=== PATIENT | female | born 1970 | race Two or more races ===

== ENCOUNTER 2023-12-21 02:58 | Inpatient (IN) ==
[2023-12-21] MEDS ORDERED: SOLU-MEDROL 125 MG IVP ONE (03:05)
[2023-12-21] MEDS: DUONEB NEB ONE (03:12)
[2023-12-21 03:42] LABS: BASOPHILS % (AUTO) 0.3 % (0.0-3.0); EOSINOPHILS # (AUTO) 0.3 K/ul (0.0-0.7); EOSINOPHILS % (AUTO) 2.8 % (0.0-7.0); HEMATOCRIT 41.1 % (37.0-47.0); HEMOGLOBIN 13.3 g/dl (12.0-16.0); IMMATURE GRANULOCYTE % (AUTO) 0.3 % (0.0-5.0); LYMPHOCYTES # (AUTO) 1.2 K/uL (0.60-3.4); LYMPHOCYTES % (AUTO) 11.9 (10.0-50.0); MEAN CORPUSCULAR HEMOGLOBIN 29.8 pg (27.0-31.0); MEAN CORPUSCULAR HGB CONC 32.4 (31.8-35.4); MEAN CORPUSCULAR VOLUME 91.9 fl (81.0-99.0); MONOCYTES # (AUTO) 0.9 K/uL (0.4-2.0); MONOCYTES % (AUTO) 8.8 (0-10); NEUTROPHILS # (AUTO) 7.6 K/ul (2.0-6.9); NEUTROPHILS % (AUTO) 75.9 % (42.2-75.2); PLATELET COUNT 187 10^3/uL (140-440); RDW COEFFICIENT OF VARIATION 13.8 % (11.6-14.8); RED BLOOD COUNT 4.47 10^6/ul (4.20-5.40); WHITE BLOOD COUNT 10.02 K/ul (4.6-10.2)
[2023-12-21 03:54] LABS: ALANINE AMINOTRANSFERASE 47.2 U/L (0-35); ALBUMIN 4.26 g/dL (3.5-5.0); ALKALINE PHOSPHATASE 110.6 U/L (38-126); ASPARTATE AMINO TRANSFERASE 33.6 U/L (14-36); BILIRUBIN,TOTAL 1.51 mg/dL (0.2-1.3); BLOOD UREA NITROGEN 9.1 mg/dL (7-17); CALCIUM 9.16 mg/dL (8.4-10.2); CARBON DIOXIDE 28.9 mmol/L (22-30.0); CHLORIDE 107.1 mmol/L (98-107); CREATININE 0.71 mg/dL (0.60-1.30); GLUCOSE 191.8 mg/dL (74-106); POTASSIUM 3.11 mmol/L (3.5-5.1); TOTAL PROTEIN 7.68 g/dL (6.3-8.2)
--- NOTE | 2023-12-21 04:01 | ED.PDOC ---
General ED Provider: Dr. MEHNAZ MOJICA DO Chief Complaint: Shortness of Air Stated Complaint: Patient is a 40 yo F here for 12 hours of sob patient afebrile and spo2 92% non smoker with stable blood pressure She felt as if she had a viral uri that is travveling into her lungs She denies chest pain and admits sob No hemoptysis No falls or injuries No recent surgeries No sick contacts PMH: afib on eliquis She is speaking in full sentences no productive cough Patient amenable to full work up Time Seen by Provider: 12/21/23 03:05 Information Source: Patient Primary Care Provider: MEHNAZ WASHINGTON Nursing and Triage Documentation Reviewed and Agree: Yes What is Opioid Naive?: *Opioid Naive implies the patient is not already taking opioids or not chronically receiving opioids on a daily basis. *PRN dosing is not "usually" associated with tolerance. *Patients are at higher risk of over-sedation and aspiration. What is Opioid Tolerant?: *Opioid Tolerance implies less than the expected response to an opioid. *Acquired tolerance is defined by the patient taking 60mg of oral morphine daily (or equianalgesic dose of another opioid) for 1 week or more. *Often associated with chronic pain. *May take more than usual dose to achieve desired pain control. Review of Systems Review Of Systems Constitutional: Denies Chills, Fever or Sweats Eyes: Denies Blindness or Vision change Ears, Nose, Mouth, Throat: Reports Throat pain; Denies Ear pain or Nose pain Respiratory: Reports Shortness of Breath; Denies Cough or Wheezing Cardiac: Denies Chest pain, Palpitations or Syncope GI: Denies Abdominal pain, Constipated or Diarrhea : Denies Burning or Discharge Musculoskeletal: Denies Back pain or Joint pain Skin: Denies Bruising or Rash Neurological: Reports No symptoms Endocrine: Reports No symptoms Hematologic/Lymphatic: Reports No symptoms All Other Systems: Reviewed and Negative [facility] [place] Medical History Hypertension I10 - Essential (primary) hypertension (ICD-10) Diabetes type 2, controlled E11.9 - Type 2 diabetes mellitus without complications (ICD-10) Atrial fibrillation I48.91 - Unspecified atrial fibrillation (ICD-10) Family History UNCLE No problems noted. Unknown Adopted Pt is adopted. unknown family hx. Social History Smoking and tobacco status: Never smoker Alcohol intake: current Alcohol intake frequency: holidays/special occasions only Surgical History H/O emergency section Z98.891 - History of uterine scar from previous surgery (ICD-10) History of cholecystectomy Z90.49 - Acquired absence of other specified parts of digestive tract (ICD- 10) History of arthroplasty of both knees Z96.653 - Presence of artificial knee joint, bilateral (ICD-10) Previous back surgery Z98.890 - Other specified postprocedural states (ICD-10) Female Reproductive History Menstrual Hx Hysterectomy: No Hx Tubal Ligation: No Physical Exam Physical Exam Appearance: Reports Well-appearing, Well-nourished and Obese Ill-appearing: Not Applicable Pain Distress: Not Applicable Eyes: Reports TYESHA, EOMI and Conjunctiva clear ENT: Reports Ears normal, Nose normal, Oropharynx normal and Other (Uvula midline) Neck: Supple (trachea midline) Respiratory: Reports Airway patent and Breath sounds clear; Denies Crackles, Rhonchi or Wheezes Cardiovascular: Reports Pulses normal and Irregular rhythm GI/: Reports Soft, Nontender and Other (central abdominal obesity, no guarding) Musculoskeletal: Reports Normal strength and ROM intact Skin: Reports Warm and Dry Neurological: Reports Sensation intact and Motor intact Psychiatric: Reports Affect appropriate and Mood appropriate Interpretation EKG Interpretation EKG Interpretation By: ED Physician Time of EKG #1: 03:17 Interpretation: afib rate 103 no stemi qrs within normal limits Course Course 12/22/23 05:17 12/22/23 05:17 Orders, Labs, Meds: Lab Review 12/21/23 12/21/23 12/21/23 03:30 05:03 05:15 WBC 10.02 RBC 4.47 Hgb 13.3 Hct 41.1 MCV 91.9 MCH 29.8 MCHC 32.4 RDW Coeff of Andrei 13.8 Plt Count 187 Immature Gran % (Auto) 0.3 Neut % (Auto) 75.9 H Lymph % (Auto) 11.9 [place] % (Auto) 8.8 Eos % (Auto) 2.8 Baso % (Auto) 0.3 Neut # (Auto) 7.6 H Lymph # (Auto) 1.2 [place] # (Auto) 0.9 Eos # (Auto) 0.3 Baso # (Auto) 0.0 Immature Gran # (Auto) 0.0 Puncture Site L radial Base Excess 7.0 H O2 Saturation 89.4 L ABG pH 7.44 ABG pCO2 46.0 H ABG pO2 55.0 L* ABG HCO3 31.2 H ABG Total CO2 32.6 H Manish Test + Hemoglobin 0.7 Oxyhemoglobin 90.8 L Carboxyhemoglobin 1.8 H Total Hemoglobin 13.0 FiO2 % 21.0 Sodium 141.0 Potassium 3.11 L Chloride 107.1 H Carbon Dioxide 28.9 Anion Gap 8.11 BUN 9.1 Creatinine 0.71 Estimated GFR (MDRD) 86.00 BUN/Creatinine Ratio 12.81 Glucose 191.8 H Calcium 9.16 Total Bilirubin 1.51 H AST 33.6 ALT 47.2 H Alkaline Phosphatase 110.6 Troponin I < 0.012 NT-Pro-B Natriuret Pep 460 H Total Protein 7.68 Albumin 4.26 Globulin 3.42 Albumin/Globulin Ratio 1.24 Adenovirus (PCR) Not detected B. pertussis DNA (PCR) Not detected B.parapertussis DNA PCR Not detected C. pneumoniae DNA (PCR) Not detected Coronavirus OC43 (PCR) Not detected Coronavirus HKU1 (PCR) Not detected Coronavirus 229E (PCR) Not detected Coronavirus NL63 (PCR) Not detected Human Metapneumovir PCR Not detected Influenza Type A (PCR) Not detected Influ A Molecular Assay Negative by naat Influenza B (RT-PCR) Not detected Influ B Molecular Assay Negative by naat M. pneumoniae (PCR) Not detected Parainfluenza 1 (PCR) Not detected Parainfluenza 2 (PCR) Not detected Parainfluenza 3 (PCR) Not detected Parainfluenza 4 (PCR) Not detected RSV Antigen Negative by naat RSV (PCR) Not detected Entero/Rhino (PCR) Detected H SARS-CoV-2 (PCR) Not detected SARS CoV-2 RNA Rapid PILAR Negative Orders Category Date Time Status OBSERVATION [PLACE PATIENT OBSERVATION] .TO MEDSURG ADMISSION 12/21/23 06:26 Active (MONITORED BED) ABG DRAW REQUEST Stat CARDIO 12/21/23 05:01 Completed EKG-(ED ONLY) Stat CARDIO 12/21/23 03:05 Completed NPO REMINDER: IMAGING ONCE CARE 12/21/23 03:11 Completed TELEMETRY MONITORING TELE CARE 12/21/23 06:26 Active ED APPLY O2 .ONCE EMERGENCY 12/21/23 03:05 Active ED TESTER EQUIPMENT APPLIED .ONCE EMERGENCY 12/21/23 03:05 Active ABG COOX Stat LAB 12/21/23 05:15 Completed CBC W/ AUTO DIFF Stat LAB 12/21/23 03:30 Completed COMPREHENSIVE METABOLIC PANEL Stat LAB 12/21/23 03:30 Completed FLU A/B MOLECULAR Stat LAB 12/21/23 03:30 Completed MOLECULAR GROUP A STREP Stat LAB 12/21/23 05:10 Completed NT-PROBNP(ED) Stat LAB 12/21/23 03:30 Completed RESPIRATORY PANEL 2.1 (PCR) Stat LAB 12/21/23 05:03 Completed RSV Stat LAB 12/21/23 03:30 Completed SARS COV-2 RNA RAPID PILAR Stat LAB 12/21/23 03:30 Completed TROPONIN I Stat LAB 12/21/23 03:30 Completed Ipratropium/Albuterol Neb [Duoneb] Meds 12/21/23 03:05 Discontinued 3 ml NEB ONCE ONE Magnesium Oxide [Mag-Ox] Meds 12/21/23 03:59 Discontinued 400 mg PO ONCE ONE Potassium Chloride [K-Dur] Meds 12/21/23 03:59 Discontinued 40 meq PO ONCE ONE CT CHEST PE PROTOCOL Stat RADS 12/21/23 03:11 Completed Medications Generic Name Dose Route Start Last Admin Trade Name Freq PRN Reason Stop Dose Admin Acetaminophen 650 mg 12/21/23 08:38 Acetaminophen 325 Mg Tablet PO Q4H PRN Mild Pain Albuterol/Ipratropium 3 ml 12/21/23 12:00 12/22/23 05:25 Ipratropium/Albuterol Vial.Neb NEB 3 ml RTQ6H NEO Administration Apixaban 5 mg 12/21/23 09:00 12/21/23 22:00 Apixaban 5 Mg Tab PO 5 mg BID NEO Administration Benzonatate 100 mg 12/21/23 09:45 Benzonatate 100 Mg Capsule PO TID PRN Cough Bumetanide 0.5 mg 12/21/23 09:00 12/22/23 05:17 Bumetanide 1 Mg Tablet PO 0.5 mg BIDAC2 NEO Administration Diltiazem HCl 180 mg 12/21/23 09:00 12/21/23 09:38 Diltiazem Hcl 180 Mg Cap.Er.24h PO 180 mg DAILY NEO Administration Doxazosin Mesylate 2 mg 12/21/23 17:00 12/21/23 16:26 Doxazosin Mesylate 2 Mg Tablet PO 2 mg QPM NEO Administration Fluticasone Propionate 2 spray 12/21/23 09:45 12/21/23 10:49 Fluticasone Propionate 16 Gm Nasal [place] ARIC 2 spray DAILY NEO Administration Guaifenesin 600 mg 12/21/23 10:00 12/21/23 22:00 Guaifenesin 600 Mg Tablet.Er PO 600 mg Q12HR NEO Administration Insulin Human Lispro 0 unit 12/22/23 08:18 Insulin Lispro 100 Unit/Ml Vial SUBCUT PRN PRN Hyperglycemia Protocol Losartan Potassium 25 mg 12/21/23 09:00 12/21/23 09:39 Losartan Potassium 25 Mg Tablet PO 25 mg DAILY NEO Administration Methylprednisolone Sodium Succinate 40 mg 12/21/23 09:45 12/22/23 05:17 Methylprednisolone Sod Succ/Pf 40 Mg/Ml Vial IVP 40 mg Q8HR NEO Administration Pantoprazole Sodium 40 mg 12/21/23 09:00 12/22/23 05:18 Pantoprazole Sodium 40 Mg Tablet.Dr PO 40 mg QDAC2 NEO Administration Potassium Chloride 20 meq 12/21/23 09:00 12/21/23 16:26 Potassium Chloride 20 Meq Tab PO 20 meq BIDWM2 NEO Administration Pregabalin 200 mg 12/21/23 09:00 12/21/23 22:00 Pregabalin 50 Mg Capsule PO 200 mg BID NEO Administration Sodium Chloride 1 syr 12/22/23 05:00 12/22/23 05:17 0.9% Sodium Chloride 10 Ml Disp.Syrin IVF 1 syr Q8HR NEO Administration Tizanidine HCl 4 mg 12/21/23 08:45 Tizanidine Hcl 4 Mg Tablet PO BID PRN muscle spasms Discontinued Medications Generic Name Dose Route Start Last Admin Trade Name Freq PRN Reason Stop Dose Admin Albuterol/Ipratropium 3 ml 12/21/23 03:05 12/21/23 03:12 Ipratropium/Albuterol Vial.Neb NEB 12/21/23 03:06 3 ml ONCE ONE Administration Hydralazine HCl 10 mg 12/21/23 07:36 12/21/23 07:43 Hydralazine Hcl 20 Mg/Ml Sdv IVP 12/21/23 07:37 10 mg ONCE STA Administration Insulin Human Lispro 0 unit 12/21/23 08:38 12/22/23 06:13 Insulin Lispro 100 Unit/Ml Vial SUBCUT 8 unit PRN PRN Administration Hyperglycemia Protocol Magnesium Oxide 400 mg 12/21/23 03:59 12/21/23 04:26 Magnesium Oxide 400 Mg Tablet PO 12/21/23 04:00 400 mg ONCE ONE Administration Potassium Chloride 40 meq 12/21/23 03:59 12/21/23 04:26 Potassium Chloride 20 Meq Tab PO 12/21/23 04:00 40 meq ONCE ONE Administration Vital Signs: Temp Pulse Resp BP Pulse Ox O2 Flow Rate 12/21/23 05:25 2 12/21/23 03:01 97.2 F L 108 H 26 H 171/121 H 88 L hospitalist paged for admission for hypoxia 2/2 viral syndrome MDM: Patient is a 53 yo F here for sob Patient afebrile and mildly hypoxic with stable blood pressure Hx from patient chart review by me Exam concerning for low SPO2 3+ labs and 2 images reviewed by me Patietn doing well on 2 L NCI consulted hospitalist MICHAEL for admission and she agrees WDX: Hypoxia with viral syndrome acute moderate compelxity DDX: I considered sepsis, bacterial pneumonia, PE but these were not found SDOH: Patient will improve with short care stay Patient and I discussed findings and plan All questions answered Patient admitted stable Discharge Plan Discharge Patient Disposition: PLACED OBSERVATION Discharge Problem: Acute viral syndrome, Hypoxia Did you review [place] ADJUSTER ARBITRATOR for ALL controlled substances?: Not Applicable ED Provider: FLORENCIO JEFF Condition: Stable Physician Progress Note: []
[2023-12-21 04:03] LABS: MOLECULAR FLU A NEGATIVE BY NAAT (NEGATIVE); MOLECULAR FLU B NEGATIVE BY NAAT (NEGATIVE); RSV MOLECULAR NEGATIVE BY NAAT (NEGATIVE); SARS COV-2 RNA RAPID NAAT NEGATIVE (NEGATIVE)
[2023-12-21 04:06] LABS: TROPONIN I < 0.012 ng/ml (0.0000-0.120)
[2023-12-21] MEDS: MAG-OX PO ONE (04:26)
[2023-12-21] MEDS: K-DUR PO ONE (04:26)
--- NOTE | 2023-12-21 04:48 | CT ---
EXAM: CT PULMONARY ANGIOGRAM. HISTORY: Cough. Shortness of breath. Hypoxia. PROCEDURE: After the intravenous injection of contrast a CT pulmonary angiogram was performed with c ontiguous axial CT images of the chest with multiplanar reformats, MIP images and 3-D reformats. Comparison: None. FINDINGS: There is normal enhancement of the pulmonary arteries with no evidence of pulmonary embolis m. The heart is enlarged. The thoracic aorta is within normal limits in size. There is minimal biba silar dependent atelectasis. There are degenerative changes in the spine. No acute findings in the visualized portion of the abdomen. Impression: No evidence of pulmonary embolism. Bibasilar dependent atelectasis. Cardiomegaly. All CT scans are performed using dose optimization techniques as appropriate to the performed exam an d include at least one of the following: Automated exposure control, adjustment of the mA and/or kV according t o size, and the use of iterative reconstruction technique.
[2023-12-21 05:22] LABS: ABG O2 HGB 90.8 % (95-100); ABG PH 7.44 (7.35-7.45); COHb 1.8 (0.5-1.5); HCO3 31.2 (21-28); MetHb 0.7 (0-1.5); TCO2 32.6 (19-24); sO2 89.4 % (94-98)
[2023-12-21 06:01] LABS: ADENOVIRUS (PCR) NOT DETECTED (NOT DETECT); BORDETELLA PARAPERTUSSIS (PCR) NOT DETECTED (NOT DETECT); BORDETELLA PERTUSSIS (PCR) NOT DETECTED (NOT DETECT); CHLAMYDIA PNEUMONIAE (PCR) NOT DETECTED (NOT DETECT); CORONAVIRUS 229E (PCR) NOT DETECTED (NOT DETECT); CORONAVIRUS HKU1 (PCR) NOT DETECTED (NOT DETECT); CORONAVIRUS NL63 (PCR) NOT DETECTED (NOT DETECT); CORONAVIRUS OC43 (PCR) NOT DETECTED (NOT DETECT); HUMAN METAPNEUMOVIRUS (PCR) NOT DETECTED (NOT DETECT); HUMAN RHINOVIRUS/ENTEROV (PCR) DETECTED (NOT DETECT); INFLUENZA B (PCR) NOT DETECTED (NOT DETECT); MYCOPLASMA PNEUMONIAE (PCR) NOT DETECTED (NOT DETECT); PARAINFLUENZA VIRUS 1 (PCR) NOT DETECTED (NOT DETECT); PARAINFLUENZA VIRUS 2 (PCR) NOT DETECTED (NOT DETECT); PARAINFLUENZA VIRUS 3 (PCR) NOT DETECTED (NOT DETECT); PARAINFLUENZA VIRUS 4 (PCR) NOT DETECTED (NOT DETECT); RESPIRATORY SYNCYTIAL V (PCR) NOT DETECTED (NOT DETECT); SARS_COV_2 (PCR) NOT DETECTED (NOT DETECT)
[2023-12-21] MEDS: HYDRALAZINE HCL IVP STA (07:43)
[2023-12-21 08:20] VITALS: BMI 56.3
[2023-12-21] MEDS ORDERED: TYLENOL PO PRN (08:38)
[2023-12-21] MEDS ORDERED: ZANAFLEX PO PRN (08:45)
[2023-12-21] MEDS: BUMEX PO SCH (09:38)
[2023-12-21] MEDS: CARDIZEM CD PO SCH (09:38)
[2023-12-21] MEDS: LYRICA PO SCH (09:38)
[2023-12-21] MEDS: COZAAR PO SCH (09:39)
[2023-12-21] MEDS: K-DUR PO SCH (09:39)
[2023-12-21] MEDS: PROTONIX PO SCH (09:39)
[2023-12-21] MEDS: ELIQUIS PO SCH (09:39)
[2023-12-21] MEDS ORDERED: TESSALON PERLES PO PRN (09:45)
[2023-12-21] MEDS: MUCINEX PO SCH (10:49)
[2023-12-21] MEDS: FLONASE NAS SCH (10:49)
[2023-12-21] MEDS: SOLU-MEDROL 40 MG IVP SCH (10:49)
[2023-12-21] MEDS: DUONEB NEB SCH (11:11)
--- NOTE | 2023-12-21 11:32 | PCM ---
Date of Service Date Seen by Provider: 12/21/23 Time Seen by Provider: 09:00 Admit Day/Time Admission Date: 12/21/23 Admission Time: 06:26 Reason for Admission Chief Complaint: HYPOXIA,VIRAL SYNDROME Hospital Provider Hospital Provider: Yoseph Grimes PA-C [facility] Primary Care Physician Primary Care Physician: MEHNAZ WASHINGTON History of Present Illness History of Present Illness: Patient is a 53 year old female with pmhx of diabetes, a fib, hypertension, MONICA, GERD, who presented to ER with 1 day history of cough and sob. Denies hx of asthma/copd/smoking. Just felt as though she couldn't catch her breath. She was found to be in the 80s O2 sat in the ER. CTA negative. Positive for rhinovirus. Was placed on 3L. She was given a breathing treatment which she states helped. Admitted to [facility] for further evaluation and treatment. Of note, pt states she was just recently hospitalized and treated for new onset a fib in October. She also wears a CPAP at night. Her is going to bring it in. Case Discussed With Case Discussed With: Patient's case was discussed with the ER Physicians, Dr. Watson. [facility] Medical History Hypertension I10 - Essential (primary) hypertension (ICD-10) Diabetes type 2, controlled E11.9 - Type 2 diabetes mellitus without complications (ICD-10) Atrial fibrillation I48.91 - Unspecified atrial fibrillation (ICD-10) Surgical History H/O emergency section Z98.891 - History of uterine scar from previous surgery (ICD-10) History of cholecystectomy Z90.49 - Acquired absence of other specified parts of digestive tract (ICD- 10) History of arthroplasty of both knees Z96.653 - Presence of artificial knee joint, bilateral (ICD-10) Previous back surgery Z98.890 - Other specified postprocedural states (ICD-10) Family History UNCLE No problems noted. Unknown Adopted Pt is adopted. unknown family hx. Social History Smoking and tobacco status: Never smoker Alcohol intake: current Alcohol intake frequency: holidays/special occasions only Allergies Allergies Allergy/AdvReac Type Severity Reaction Status Date / Time meperidine [From Demerol] AdvReac Severe Hives Verified 12/21/23 03:54 Current Medications Home Medications apixaban 5 mg tablet (Eliquis) 5 mg PO BID 12/21/23 [History Confirmed 12/21/23 Last Taken 12/20/23] bumetanide 0.5 mg tablet 0.5 mg PO BID 12/21/23 [History Confirmed 12/21/23 Last Taken 12/20/23] clotrimazole-betamethasone 1 %-0.05 % topical cream 1 applic topical QID PRN rash 12/21/23 [History Confirmed 12/21/23 Last Taken Unknown] diltiazem HCl 180 mg capsule,extended release 24 hr 180 mg PO DAILY 12/21/23 [History Confirmed 12/21/23 Last Taken 12/20/23] doxazosin 2 mg tablet 2 mg PO QPM 12/21/23 [History Confirmed 12/21/23 Last Taken 12/20/23] losartan 25 mg tablet 25 mg PO DAILY 12/21/23 [History Confirmed 12/21/23 Last Taken 12/20/23] metformin 500 mg tablet 500 mg PO BID 12/21/23 [History Confirmed 12/21/23 Last Taken 12/20/23] pantoprazole 40 mg tablet,delayed release 40 mg PO DAILY 12/21/23 [History Confirmed 12/21/23 Last Taken 12/20/23] potassium chloride 20 mEq tablet,extended release(part/cryst) 20 meq PO BID 12/21/23 [History Confirmed 12/21/23 Last Taken 12/20/23] pregabalin 200 mg capsule 200 mg PO BID 12/21/23 [History Confirmed 12/21/23 Last Taken 12/20/23] tirzepatide 5 mg/0.5 mL subcutaneous pen injector (Mounjaro) 5 mg subcut WEEKLY 12/21/23 [History Confirmed 12/21/23 Last Taken Unknown] tizanidine 4 mg tablet 4 mg PO BID PRN muscle spasticity 12/21/23 [History Confirmed 12/21/23 Last Taken 12/20/23] Home Acetaminophen (Acetaminophen 325 Mg Tablet) 650 mg PO Q4H PRN PRN Reason: Mild Pain Albuterol/Ipratropium (Ipratropium/Albuterol Vial.Neb) 3 ml NEB RTQ6H [facility] Last Admin: 12/21/23 11:11 Dose: 3 ml Apixaban (Apixaban 5 Mg Tab) 5 mg PO BID [facility] Last Admin: 12/21/23 09:39 Dose: 5 mg Benzonatate (Benzonatate 100 Mg Capsule) 100 mg PO TID PRN PRN Reason: Cough Bumetanide (Bumetanide 1 Mg Tablet) 0.5 mg PO BIDAC2 [facility] Last Admin: 12/21/23 09:38 Dose: 0.5 mg Diltiazem HCl (Diltiazem Hcl 180 Mg Cap.Er.24h) 180 mg PO DAILY [facility] Last Admin: 12/21/23 09:38 Dose: 180 mg Doxazosin Mesylate (Doxazosin Mesylate 2 Mg Tablet) 2 mg PO QPM [facility] Fluticasone Propionate (Fluticasone Propionate 16 Gm Nasal [place]) 2 spray ARIC DAILY [facility] Last Admin: 12/21/23 10:49 Dose: 2 spray Guaifenesin (Guaifenesin 600 Mg Tablet.Er) 600 mg PO Q12HR [facility] Last Admin: 12/21/23 10:49 Dose: 600 mg Insulin Human Lispro (Insulin Lispro 100 Unit/Ml Vial) 0 unit SUBCUT PRN PRN; Protocol PRN Reason: Hyperglycemia Losartan Potassium (Losartan Potassium 25 Mg Tablet) 25 mg PO DAILY [facility] Last Admin: 12/21/23 09:39 Dose: 25 mg Methylprednisolone Sodium Succinate (Methylprednisolone Sod Succ/Pf 40 Mg/Ml Vial) 40 mg IVP Q8HR [facility] Last Admin: 12/21/23 12:49 Dose: Not Given Pantoprazole Sodium (Pantoprazole Sodium 40 Mg Tablet.Dr) 40 mg PO QDAC2 [facility] Last Admin: 12/21/23 09:39 Dose: 40 mg Potassium Chloride (Potassium Chloride 20 Meq Tab) 20 meq PO BIDWM2 [facility] Last Admin: 12/21/23 09:39 Dose: 20 meq Pregabalin (Pregabalin 50 Mg Capsule) 200 mg PO BID [facility] Last Admin: 12/21/23 09:38 Dose: 200 mg Tizanidine HCl (Tizanidine Hcl 4 Mg Tablet) 4 mg PO BID PRN PRN Reason: muscle spasms Discontinued Medications Albuterol/Ipratropium (Ipratropium/Albuterol Vial.Neb) 3 ml NEB ONCE ONE Stop: 12/21/23 03:06 Last Admin: 12/21/23 03:12 Dose: 3 ml Hydralazine HCl (Hydralazine Hcl 20 Mg/Ml Sdv) 10 mg IVP ONCE STA Stop: 12/21/23 07:37 Last Admin: 12/21/23 07:43 Dose: 10 mg Magnesium Oxide (Magnesium Oxide 400 Mg Tablet) 400 mg PO ONCE ONE Stop: 12/21/23 04:00 Last Admin: 12/21/23 04:26 Dose: 400 mg Potassium Chloride (Potassium Chloride 20 Meq Tab) 40 meq PO ONCE ONE Stop: 12/21/23 04:00 Last Admin: 12/21/23 04:26 Dose: 40 meq Opioid Naive vs. Tolerant Does Patient Take Opioids?: No Is Patient Opioid Naive?: Yes What is Opioid Naive?: *Opioid Naive implies the patient is not already taking opioids or not chronically receiving opioids on a daily basis. *PRN dosing is not "usually" associated with tolerance. *Patients are at higher risk of over-sedation and aspiration. Is Patient Opioid Tolerant?: No What is Opioid Tolerant?: *Opioid Tolerance implies less than the expected response to an opioid. *Acquired tolerance is defined by the patient taking 60mg of oral morphine daily (or equianalgesic dose of another opioid) for 1 week or more. *Often associated with chronic pain. *May take more than usual dose to achieve desired pain control. Review of Systems Constitutional: Reports Fatigue and Weakness Head: Reports Normocephalic and Atraumatic Throat: Denies Sore Throat or Difficulty Swallowing Cardiovascular: Denies Chest pain or Chest Pressure Respiratory: Reports Cough and Shortness of air Gastrointestinal: Denies Nausea, Vomiting, Diarrhea, Abdominal pain or Melena Genitourinary: Denies Dysuria or Frequency Dermatologic: Denies Rashes Neurological: Denies Headache, Dizziness or Syncope Physical examination Most Recent Vital Signs: Most Recent Vital Signs Temperature 97.1 F L 12/21/23 10:00 Temperature Source Temporal Artery Scan 12/21/23 10:00 Temperature Source Oral 12/21/23 03:01 Pulse Rate 134 H 12/21/23 10:00 Respiratory Rate 30 H 12/21/23 10:00 Blood Pressure 105/58 L 12/21/23 10:00 Blood Pressure Mean 73 12/21/23 10:00 Blood Pressure Left Arm 158/106 12/21/23 08:07 Blood Pressure Location Right Radial Artery 12/21/23 10:00 Blood Pressure Position Sitting 12/21/23 10:00 O2 Sat by Pulse Oximetry 95 12/21/23 10:00 Oxygen Delivery Method Room Air 12/21/23 10:51 Oxygen Flow Rate 2.5 12/21/23 10:00 Height 5 ft 7 in 12/21/23 08:07 Weight 360 lb 12/21/23 08:07 Appearance: Positive No Apparent Distress, Alert and Oriented x3 and Obese Skin: Positive [place], Warm and Good Turgor; Negative Rashes HEENT: Positive Normocephalic and Atraumatic Neck: Positive Supple and Midline Trachea Chest/Lungs: Positive Symmetrical With Equal Breath Sounds and Wheezes (+vilma ); Negative Rales or Rhonci Heart: Positive Irregular Rhythm and Tachycardia GI/: Positive Soft, Nontender, Bowel Sounds Normal and No Distention Neurological: Positive Cranial Nerves Intact, Alert, Oriented and Muscle Strength 5/5 in Upper and Lower Extremities Bilaterally Psychiatric: Positive Oriented x4, Appropriate Mood and Appropriate Affect Labs This Visit Labs This Visit: Labs This Visit 12/21/23 12/21/23 12/21/23 03:30 05:03 05:15 WBC 10.02 RBC 4.47 Hgb 13.3 Hct 41.1 MCV 91.9 MCH 29.8 MCHC 32.4 RDW Coeff of Andrei 13.8 Plt Count 187 Immature Gran % (Auto) 0.3 Neut % (Auto) 75.9 H Lymph % (Auto) 11.9 [place] % (Auto) 8.8 Eos % (Auto) 2.8 Baso % (Auto) 0.3 Neut # (Auto) 7.6 H Lymph # (Auto) 1.2 [place] # (Auto) 0.9 Eos # (Auto) 0.3 Baso # (Auto) 0.0 Immature Gran # (Auto) 0.0 Puncture Site L radial Base Excess 7.0 H O2 Saturation 89.4 L ABG pH 7.44 ABG pCO2 46.0 H ABG pO2 55.0 L* ABG HCO3 31.2 H ABG Total CO2 32.6 H Manish Test + Hemoglobin 0.7 Oxyhemoglobin 90.8 L Carboxyhemoglobin 1.8 H Total Hemoglobin 13.0 FiO2 % 21.0 Sodium 141.0 Potassium 3.11 L Chloride 107.1 H Carbon Dioxide 28.9 Anion Gap 8.11 BUN 9.1 Creatinine 0.71 Estimated GFR (MDRD) 86.00 BUN/Creatinine Ratio 12.81 Glucose 191.8 H Calcium 9.16 Total Bilirubin 1.51 H AST 33.6 ALT 47.2 H Alkaline Phosphatase 110.6 Troponin I < 0.012 NT-Pro-B Natriuret Pep 460 H Total Protein 7.68 Albumin 4.26 Globulin 3.42 Albumin/Globulin Ratio 1.24 Adenovirus (PCR) Not detected B. pertussis DNA (PCR) Not detected B.parapertussis DNA PCR Not detected C. pneumoniae DNA (PCR) Not detected Coronavirus OC43 (PCR) Not detected Coronavirus HKU1 (PCR) Not detected Coronavirus 229E (PCR) Not detected Coronavirus NL63 (PCR) Not detected Human Metapneumovir PCR Not detected Influenza Type A (PCR) Not detected Influ A Molecular Assay Negative by naat Influenza B (RT-PCR) Not detected Influ B Molecular Assay Negative by naat M. pneumoniae (PCR) Not detected Parainfluenza 1 (PCR) Not detected Parainfluenza 2 (PCR) Not detected Parainfluenza 3 (PCR) Not detected Parainfluenza 4 (PCR) Not detected RSV Antigen Negative by naat RSV (PCR) Not detected Entero/Rhino (PCR) Detected H SARS-CoV-2 (PCR) Not detected SARS CoV-2 RNA Rapid PILAR Negative Microbiology This Visit 12/21/23 05:10 Throat Group A Strep Molecular Assay - Final Imaging Imaging: EXAM: CT PULMONARY ANGIOGRAM. HISTORY: Cough. Shortness of breath. Hypoxia. PROCEDURE: After the intravenous injection of contrast a CT pulmonary angiogram was performed with contiguous axial CT images of the chest with multiplanar reformats, MIP images and 3-D reformats. Comparison: None. FINDINGS: There is normal enhancement of the pulmonary arteries with no evidence of pulmonary embolism. The heart is enlarged. The thoracic aorta is within normal limits in size. There is minimal bibasilar dependent atelectasis. There are degenerative changes in the spine. No acute findings in the visualized portion of the abdomen. Impression: No evidence of pulmonary embolism. Bibasilar dependent atelectasis. Cardiomegaly. Review Statement Review Statement: I have independently reviewed and interpreted the labs/EKGs/imaging that were ordered by the ER provider. I have reviewed all outside records that are available currently in our EMR including imaging/notes/labs from previous visits. Plan Plan: 1. Acute hypoxic respiratory failure in setting of Rhinovirus - nebs, steroids, mucinex, flonase 2. Rhinovirus - Plan as above 3. A fib - Cont home meds 4. Hypertension - Cont home meds 5. DMT2 - Hold metformin. Humalog sliding scale, accuchecks achs, diabetic diet DVT Prophylaxis: Eliquis Time Spent: Greater than 80 minutes spent with patient, 50% of the time spent with this patient was devoted to counseling and coordination of care. [facility] minutes spent discussing advance care planning. FULL CODE Admit to: Obs Discussed Plan of Care with Dr. Tucker Gomez. Medications Medication Orders: Medications Ordered Category Date Time Status Acetaminophen [Tylenol] Meds 12/21/23 08:38 Active 650 mg PO Q4H PRN Apixaban [Eliquis] Meds 12/21/23 09:00 Active 5 mg PO BID Benzonatate [Tessalon Perles] Meds 12/21/23 09:45 Active 100 mg PO TID PRN Bumetanide [Bumex] Meds 12/21/23 09:00 Active 0.5 mg PO BIDAC2 Diltiazem HCl [Cardizem Cd] Meds 12/21/23 09:00 Active 180 mg PO DAILY Doxazosin Mesylate [Cardura] Meds 12/21/23 17:00 Active 2 mg PO QPM Fluticasone Propionate [Flonase] Meds 12/21/23 09:45 Active 2 spray ARIC DAILY Guaifenesin [Mucinex] Meds 12/21/23 10:00 Active 600 mg PO Q12HR Insulin Lispro [Humalog] Meds 12/21/23 08:38 Active See Protocol SUBCUT PRN PRN Ipratropium/Albuterol Neb [Duoneb] Meds 12/21/23 12:00 Active 3 ml NEB RTQ6H Losartan Potassium [Cozaar] Meds 12/21/23 09:00 Active 25 mg PO DAILY Methylprednisolone Sod Succ/Pf [Solu-Medrol 40 mg] Meds 12/21/23 09:45 Active 40 mg IVP Q8HR Pantoprazole Sodium [Protonix] Meds 12/21/23 09:00 Active 40 mg PO QDAC2 Potassium Chloride [K-Dur] Meds 12/21/23 09:00 Active 20 meq PO BIDWM2 Pregabalin [Lyrica] Meds 12/21/23 09:00 Active 200 mg PO BID Tizanidine HCl [Zanaflex] Meds 12/21/23 08:45 Active 4 mg PO BID PRN
--- NOTE | 2023-12-21 12:55 | RS.OTCNOTE ---
OT Case Note Date of Note: 12/21/23 Title: OT case note Note: Pt is I with ADLs. Pt does not require skilled OT at this time.
[2023-12-21] MEDS: CARDURA PO SCH (16:26)
[2023-12-21] MEDS ORDERED: DOXAZOSIN 2 MG PO SCH (17:00)
[2023-12-21] MEDS: HUMALOG SUBCUT PRN (17:50)
[2023-12-22 05:39] LABS: BASOPHILS % (AUTO) 0.1 % (0.0-3.0); HEMATOCRIT 41.1 % (37.0-47.0); HEMOGLOBIN 13.3 g/dl (12.0-16.0); IMMATURE GRANULOCYTE # (AUTO) 0.1 (0.0-1.0); IMMATURE GRANULOCYTE % (AUTO) 0.9 % (0.0-5.0); LYMPHOCYTES # (AUTO) 0.6 K/uL (0.60-3.4); LYMPHOCYTES % (AUTO) 8.3 (10.0-50.0); MEAN CORPUSCULAR HGB CONC 32.4 (31.8-35.4); MEAN CORPUSCULAR VOLUME 92.6 fl (81.0-99.0); MONOCYTES # (AUTO) 0.2 K/uL (0.4-2.0); MONOCYTES % (AUTO) 2.6 (0-10); NEUTROPHILS # (AUTO) 6.1 K/ul (2.0-6.9); NEUTROPHILS % (AUTO) 88.1 % (42.2-75.2); PLATELET COUNT 186 10^3/uL (140-440); RDW COEFFICIENT OF VARIATION 13.7 % (11.6-14.8); RED BLOOD COUNT 4.44 10^6/ul (4.20-5.40); WHITE BLOOD COUNT 6.97 K/ul (4.6-10.2)
[2023-12-22 05:53] LABS: ALBUMIN 4.26 g/dL (3.5-5.0); ALKALINE PHOSPHATASE 113.9 U/L (38-126); BILIRUBIN,TOTAL 1.82 mg/dL (0.2-1.3); BLOOD UREA NITROGEN 14.4 mg/dL (7-17); CALCIUM 9.51 mg/dL (8.4-10.2); CARBON DIOXIDE 24.1 mmol/L (22-30.0); CHLORIDE 107.1 mmol/L (98-107); CREATININE 0.72 mg/dL (0.60-1.30); GLUCOSE 313.7 mg/dL (74-106); POTASSIUM 3.64 mmol/L (3.5-5.1); SODIUM 138.3 mmol/L (134.5-145); TOTAL PROTEIN 7.91 g/dL (6.3-8.2)
--- NOTE | 2023-12-22 10:27 | PCM.PROG ---
Date/Time Seen Date Seen by Provider: 12/22/23 Time Seen by Provider: 08:50 Provider Provider: Eileen Fitch PA-C, [facility] Chief Complaint Chief Complaint: HYPOXIA,VIRAL SYNDROME Subjective Subjective: Patient feeling better today but has dyspnea with exertion and HR gets up to 150s with any exertion. Objective Appearance: Positive No Apparent Distress, Alert and Oriented x3 and Obese Chest/Lungs: Positive Symmetrical With Equal Breath Sounds, Wheezes (mild, improved ) and Other (Speaking full sentences but SOB following a shower ); Negative Rales or Rhonci Heart: Positive Irregular Rhythm and Tachycardia GI/: Positive Soft, Nontender, Bowel Sounds Normal and No Distention Neurological: Positive Cranial Nerves Intact, Alert and Oriented Vital Signs Vital Signs: Vital Signs: Last 24 Hours 12/21/23 10:51 12/21/23 12:00 12/21/23 13:00 Temperature Temperature Source Pulse Rate Respiratory Rate Blood Pressure Blood Pressure Mean Blood Pressure Location Blood Pressure Position O2 Sat by Pulse Oximetry Oxygen Delivery Method Room Air Room Air Room Air Oxygen Flow Rate Telemetry Type Telemetry Monitoring Irregular Telemetry Rate (Approximate) Telemetry Heart Rate Telemetry SPO2 EKG WV Interval EKG QRS Interval Telemetry Strip Reading 12/21/23 13:00 12/21/23 14:00 12/21/23 14:00 Temperature 97.5 F L Temperature Source Temporal Artery Scan Pulse Rate 118 H Respiratory Rate 24 H Blood Pressure 155/106 H Blood Pressure Mean 122 Blood Pressure Location Right Radial Artery Blood Pressure Position O2 Sat by Pulse Oximetry 94 L Oxygen Delivery Method Room Air Nasal Cannula Oxygen Flow Rate 1 Telemetry Type Remote Telemetry Telemetry Monitoring Continues Irregular Telemetry Rate (Approximate) 110-120 BPM Telemetry Heart Rate Telemetry SPO2 93 EKG WV Interval EKG QRS Interval 0.08 Telemetry Strip Reading Afib with RVR 12/21/23 14:00 12/21/23 15:00 12/21/23 16:00 Temperature Temperature Source Pulse Rate Respiratory Rate Blood Pressure Blood Pressure Mean Blood Pressure Location Blood Pressure Position O2 Sat by Pulse Oximetry 93 L Oxygen Delivery Method Nasal Cannula Nasal Cannula Nasal Cannula Oxygen Flow Rate 2 Telemetry Type Telemetry Monitoring Irregular Telemetry Rate (Approximate) Telemetry Heart Rate Telemetry SPO2 EKG WV Interval EKG QRS Interval Telemetry Strip Reading 12/21/23 17:00 12/21/23 17:54 12/21/23 18:00 Temperature 98.9 F Temperature Source Temporal Artery Scan Pulse Rate Respiratory Rate 20 Blood Pressure 173/89 H Blood Pressure Mean 117 Blood Pressure Location Right Arm Blood Pressure Position Sitting O2 Sat by Pulse Oximetry 93 L Oxygen Delivery Method Nasal Cannula Nasal Cannula Nasal Cannula Oxygen Flow Rate 2 Telemetry Type Telemetry Monitoring Irregular Telemetry Rate (Approximate) Telemetry Heart Rate Telemetry SPO2 EKG WV Interval EKG QRS Interval Telemetry Strip Reading 12/21/23 19:00 12/21/23 19:00 12/21/23 20:00 Temperature Temperature Source Pulse Rate Respiratory Rate Blood Pressure Blood Pressure Mean Blood Pressure Location Blood Pressure Position O2 Sat by Pulse Oximetry Oxygen Delivery Method Nasal Cannula Nasal Cannula Oxygen Flow Rate Telemetry Type Remote Telemetry Telemetry Monitoring Continues Irregular Telemetry Rate (Approximate) 100-110 BPM Telemetry Heart Rate Telemetry SPO2 EKG WV Interval EKG QRS Interval 0.05 L Telemetry Strip Reading AFIB W/ RVR 12/21/23 20:00 12/21/23 20:34 12/21/23 20:40 Temperature 98.3 F Temperature Source Temporal Artery Scan Pulse Rate 126 H Respiratory Rate 24 H 24 H Blood Pressure 153/95 H Blood Pressure Mean 114 Blood Pressure Location Left Arm Blood Pressure Position Supine O2 Sat by Pulse Oximetry 96 92 L Oxygen Delivery Method Nasal Cannula Nasal Cannula Nasal Cannula Oxygen Flow Rate 2 2 2 Telemetry Type Telemetry Monitoring Irregular Telemetry Rate (Approximate) Telemetry Heart Rate Telemetry SPO2 EKG WV Interval EKG QRS Interval Telemetry Strip Reading 12/21/23 21:00 12/21/23 22:00 12/21/23 23:00 Temperature Temperature Source Pulse Rate Respiratory Rate Blood Pressure Blood Pressure Mean Blood Pressure Location Blood Pressure Position O2 Sat by Pulse Oximetry Oxygen Delivery Method Nasal Cannula Nasal Cannula Nasal Cannula Oxygen Flow Rate Telemetry Type Telemetry Monitoring Irregular Telemetry Rate (Approximate) Telemetry Heart Rate Telemetry SPO2 EKG WV Interval EKG QRS Interval Telemetry Strip Reading 12/22/23 00:00 12/22/23 00:47 12/22/23 01:00 Temperature Temperature Source Pulse Rate Respiratory Rate Blood Pressure Blood Pressure Mean Blood Pressure Location Blood Pressure Position O2 Sat by Pulse Oximetry Oxygen Delivery Method Nasal Cannula Nasal Cannula Oxygen Flow Rate Telemetry Type Remote Telemetry Telemetry Monitoring Continues Irregular Telemetry Rate (Approximate) 100-110 BPM Telemetry Heart Rate Telemetry SPO2 95 EKG WV Interval EKG QRS Interval 0.08 Telemetry Strip Reading 12/22/23 02:00 12/22/23 02:00 12/22/23 03:00 Temperature 98.3 F Temperature Source Temporal Artery Scan Pulse Rate 136 H Respiratory Rate 21 H Blood Pressure 140/79 Blood Pressure Mean 99 Blood Pressure Location Right Arm Blood Pressure Position Supine O2 Sat by Pulse Oximetry 97 Oxygen Delivery Method C-pap C-pap C-pap Oxygen Flow Rate Telemetry Type Telemetry Monitoring Irregular Telemetry Rate (Approximate) Telemetry Heart Rate Telemetry SPO2 EKG WV Interval EKG QRS Interval Telemetry Strip Reading 12/22/23 04:00 12/22/23 05:00 12/22/23 05:18 Temperature 97.4 F L Temperature Source Tympanic Pulse Rate 114 H Respiratory Rate 19 Blood Pressure 164/83 H Blood Pressure Mean 110 Blood Pressure Location Right Arm Blood Pressure Position Sitting O2 Sat by Pulse Oximetry 96 Oxygen Delivery Method C-pap C-pap Nasal Cannula Oxygen Flow Rate 2.5 Telemetry Type Telemetry Monitoring Irregular Telemetry Rate (Approximate) Telemetry Heart Rate Telemetry SPO2 EKG WV Interval EKG QRS Interval Telemetry Strip Reading 12/22/23 05:25 12/22/23 05:40 12/22/23 07:00 Temperature Temperature Source Pulse Rate Respiratory Rate Blood Pressure Blood Pressure Mean Blood Pressure Location Blood Pressure Position O2 Sat by Pulse Oximetry 93 L Oxygen Delivery Method Nasal Cannula Nasal Cannula Nasal Cannula Oxygen Flow Rate 2 Telemetry Type Telemetry Monitoring Irregular Telemetry Rate (Approximate) Telemetry Heart Rate Telemetry SPO2 EKG WV Interval EKG QRS Interval Telemetry Strip Reading 12/22/23 07:00 12/22/23 08:00 12/22/23 08:00 Temperature Temperature Source Pulse Rate Respiratory Rate Blood Pressure Blood Pressure Mean Blood Pressure Location Blood Pressure Position O2 Sat by Pulse Oximetry Oxygen Delivery Method Nasal Cannula Nasal Cannula Oxygen Flow Rate Telemetry Type Remote Telemetry Telemetry Monitoring Continues Irregular Telemetry Rate (Approximate) Telemetry Heart Rate 111 H Telemetry SPO2 95 EKG WV Interval 0.09 L EKG QRS Interval 0.04 L Telemetry Strip Reading SR with PACs 12/22/23 09:00 12/22/23 10:00 12/22/23 10:00 Temperature 97.9 F Temperature Source Tympanic Pulse Rate 119 H Respiratory Rate 20 Blood Pressure 161/98 H Blood Pressure Mean 119 Blood Pressure Location Right Arm Blood Pressure Position Sitting O2 Sat by Pulse Oximetry 96 Oxygen Delivery Method Nasal Cannula Nasal Cannula Nasal Cannula Oxygen Flow Rate 2 Telemetry Type Telemetry Monitoring Irregular Telemetry Rate (Approximate) Telemetry Heart Rate Telemetry SPO2 EKG WV Interval EKG QRS Interval Telemetry Strip Reading Lab Results Lab Results: Lab Results: Last 24 Hours 12/22/23 05:17 WBC 6.97 RBC 4.44 Hgb 13.3 Hct 41.1 MCV 92.6 MCH 30.0 MCHC 32.4 RDW Coeff of Andrei 13.7 Plt Count 186 Immature Gran % (Auto) 0.9 Neut % (Auto) 88.1 H Lymph % (Auto) 8.3 L [place] % (Auto) 2.6 Eos % (Auto) 0.0 Baso % (Auto) 0.1 Neut # (Auto) 6.1 Lymph # (Auto) 0.6 [place] # (Auto) 0.2 L Eos # (Auto) 0.0 Baso # (Auto) 0.0 Immature Gran # (Auto) 0.1 Sodium 138.3 Potassium 3.64 Chloride 107.1 H Carbon Dioxide 24.1 Anion Gap 10.74 BUN 14.4 Creatinine 0.72 Estimated GFR (MDRD) 84.00 BUN/Creatinine Ratio 20.00 Glucose 313.7 H Calcium 9.51 Total Bilirubin 1.82 H AST 26.0 ALT 44.0 H Alkaline Phosphatase 113.9 Total Protein 7.91 Albumin 4.26 Globulin 3.65 Albumin/Globulin Ratio 1.16 Additional Comments Additional Comments: I have independently reviewed and interpreted the labs/EKGs/imaging ordered during this hospital stay. I have reviewed outside records that are available in our EMR that pertain to medical stay including imaging/notes/labs from previous visits. Active Medications Active Medications: Medications Generic Name Dose Route Start Last Admin Trade Name Freq PRN Reason Stop Dose Admin Acetaminophen 650 mg 12/21/23 08:38 Acetaminophen 325 Mg Tablet PO Q4H PRN Mild Pain Albuterol/Ipratropium 3 ml 12/21/23 12:00 12/22/23 05:25 Ipratropium/Albuterol Vial.Neb NEB 3 ml RTQ6H NEO Administration Apixaban 5 mg 12/21/23 09:00 12/22/23 08:52 Apixaban 5 Mg Tab PO 5 mg BID NEO Administration Benzonatate 100 mg 12/21/23 09:45 Benzonatate 100 Mg Capsule PO TID PRN Cough Bumetanide 0.5 mg 12/21/23 09:00 12/22/23 05:17 Bumetanide 1 Mg Tablet PO 0.5 mg BIDAC2 NEO Administration Diltiazem HCl 180 mg 12/21/23 09:00 12/22/23 08:52 Diltiazem Hcl 180 Mg Cap.Er.24h PO 180 mg DAILY NEO Administration Doxazosin Mesylate 2 mg 12/21/23 17:00 12/21/23 16:26 Doxazosin Mesylate 2 Mg Tablet PO 2 mg QPM NEO Administration Fluticasone Propionate 2 spray 12/21/23 09:45 12/22/23 09:43 Fluticasone Propionate 16 Gm Nasal [place] ARIC 2 spray DAILY NEO Administration Guaifenesin 600 mg 12/21/23 10:00 12/22/23 08:52 Guaifenesin 600 Mg Tablet.Er PO 600 mg Q12HR NEO Administration Insulin Human Lispro 0 unit 12/22/23 08:18 Insulin Lispro 100 Unit/Ml Vial SUBCUT PRN PRN Hyperglycemia Protocol Losartan Potassium 25 mg 12/21/23 09:00 12/22/23 09:42 Losartan Potassium 25 Mg Tablet PO 25 mg DAILY NEO Administration Methylprednisolone Sodium Succinate 40 mg 12/21/23 09:45 12/22/23 05:17 Methylprednisolone Sod Succ/Pf 40 Mg/Ml Vial IVP 40 mg Q8HR NEO Administration Pantoprazole Sodium 40 mg 12/21/23 09:00 12/22/23 05:18 Pantoprazole Sodium 40 Mg Tablet.Dr PO 40 mg QDAC2 NEO Administration Potassium Chloride 20 meq 12/21/23 09:00 12/22/23 08:52 Potassium Chloride 20 Meq Tab PO 20 meq BIDWM2 NEO Administration Pregabalin 200 mg 12/21/23 09:00 12/22/23 08:53 Pregabalin 50 Mg Capsule PO 200 mg BID NEO Administration Sodium Chloride 1 syr 12/22/23 05:00 12/22/23 05:17 0.9% Sodium Chloride 10 Ml Disp.Syrin IVF 1 syr Q8HR NEO Administration Tizanidine HCl 4 mg 12/21/23 08:45 Tizanidine Hcl 4 Mg Tablet PO BID PRN muscle spasms Plan Plan: 1. Acute hypoxic respiratory failure in setting of Rhinovirus - nebs, steroids, mucinex, flonase 2. Rhinovirus - Plan as above 3. A fib RVR- Cont home meds. HR 120-130s at rest. Giving cardizem 15 mg IVP x1 now. Will reevaluate after. 4. Hypertension - Cont home meds 5. DMT2 - Hold metformin. Humalog sliding scale, accuchecks achs, diabetic diet DVT Prophylaxis: Segundo Dispo: Made inpatient today. Review Statement Review Statement: I have personally discussed and reviewed the patient's visit/currently labs/imaging/decision making with Dr. Gomez, my supervising attending. Greater that 50 minutes spent with patient, 50% of the time spent with this patient was devoted to counseling and coordination of care.
[2023-12-22] MEDS: HUMALOG SUBCUT PRN (10:51)
[2023-12-22] MEDS: CARDIZEM INJ IVP ONE ×2 (10:53→12:14)
[2023-12-22] MEDS: K-DUR PO ONE (13:28)
[2023-12-22] MEDS: LOPRESSOR IVP ONE ×3 (13:33→23:26)
[2023-12-22] MEDS ORDERED: LOPRESSOR IVP PRN (21:42)
[2023-12-23 05:48] LABS: BASOPHILS % (AUTO) 0.1 % (0.0-3.0); EOSINOPHILS % (AUTO) 0.1 % (0.0-7.0); HEMATOCRIT 42.8 % (37.0-47.0); HEMOGLOBIN 13.6 g/dl (12.0-16.0); IMMATURE GRANULOCYTE # (AUTO) 0.1 (0.0-1.0); IMMATURE GRANULOCYTE % (AUTO) 0.5 % (0.0-5.0); LYMPHOCYTES # (AUTO) 1.5 K/uL (0.60-3.4); LYMPHOCYTES % (AUTO) 10.4 (10.0-50.0); MEAN CORPUSCULAR HEMOGLOBIN 29.7 pg (27.0-31.0); MEAN CORPUSCULAR HGB CONC 31.8 (31.8-35.4); MEAN CORPUSCULAR VOLUME 93.4 fl (81.0-99.0); MONOCYTES # (AUTO) 1.1 K/uL (0.4-2.0); MONOCYTES % (AUTO) 7.7 (0-10); NEUTROPHILS # (AUTO) 11.7 K/ul (2.0-6.9); NEUTROPHILS % (AUTO) 81.2 % (42.2-75.2); PLATELET COUNT 239 10^3/uL (140-440); RED BLOOD COUNT 4.58 10^6/ul (4.20-5.40)
[2023-12-23 05:58] LABS: WHITE BLOOD COUNT 14.35 K/ul (4.6-10.2)
[2023-12-23 06:14] LABS: ALANINE AMINOTRANSFERASE 40.1 U/L (0-35); ALBUMIN 4.18 g/dL (3.5-5.0); ALKALINE PHOSPHATASE 103.3 U/L (38-126); ASPARTATE AMINO TRANSFERASE 29.3 U/L (14-36); BILIRUBIN,TOTAL 1.24 mg/dL (0.2-1.3); BLOOD UREA NITROGEN 25.3 mg/dL (7-17); CALCIUM 9.66 mg/dL (8.4-10.2); CARBON DIOXIDE 23.2 mmol/L (22-30.0); CREATININE 0.9 mg/dL (0.60-1.30); POTASSIUM 4.03 mmol/L (3.5-5.1); SODIUM 137.3 mmol/L (134.5-145); TOTAL PROTEIN 7.79 g/dL (6.3-8.2)
[2023-12-23] MEDS: CARDIZEM CD PO SCH (08:52)
[2023-12-23 10:29] VITALS: BP 131/80; PULSE 107; RESP 20; TEMP 98.3
--- NOTE | 2023-12-23 10:59 | DCSUM ---
Admission Date Admission Date: 12/21/23 Discharge Date Discharge Date: 12/23/23 Admission Diagnosis Admission Diagnosis: 1. Acute hypoxic respiratory failure in setting of Rhinovirus 2. Rhinovirus Discharge Diagnosis Discharge Diagnosis: 1. Acute hypoxic respiratory failure in setting of Rhinovirus 2. Rhinovirus 3. A fib RVR- resolved 4. Hypertension 5. DMT2 Hospital Provider Hospital Provider: Yoseph Grimes PA-C, [facility] Primary Care Physician Primary Care Physician: MENHAZ WASHINGTON Summary of History and Physical Summary of History and Physical: Patient is a 53 year old female with pmhx of diabetes, a fib, hypertension, [place], GERD, who presented to ER with 1 day history of cough and sob. Denies hx of asthma/copd/smoking. Just felt as though she couldn't catch her breath. She was found to be in the 80s O2 sat in the ER. CTA negative. Positive for rhinovirus. Was placed on 3L. She was given a breathing treatment which she states helped. Admitted to [facility] for further evaluation and treatment. Of note, pt states she was just recently hospitalized and treated for new onset a fib in October. She also wears a CPAP at night. Her is going to bring it in. Hospital Course Subjective: Patient was treated with nebs, flonase, mucinex, solumedrol, and oxygen. She was weaned to RA. Wheezing improved. HR was consistently elevated, required IV cardizem and later metoprolol. Had better response with the metoprolol. HR has been better controlled, increased cardizem oral dose to 240 mg qd. Pt has f/u with cards and EP this month. Will discharge on inhaler, medrol dose pack, and continue conservative measures. Pt agrees to plan of care. Appearance: Pleasant, No Apparent Distress, Alert and Other (obese ) HEENT: MMM and Supple CVS: Other (+irregularly irregular ) Abdomen: Soft, Non-Tender and No Distention Respiratory: No Accessory Muscle Use Extremities: No Edema Vital Signs: Most Recent Vital Signs Temperature 98.3 F 12/23/23 10:00 Temperature Source Tympanic 12/23/23 10:00 Temperature Source Oral 12/21/23 03:01 Pulse Rate 107 H 12/23/23 10:00 Respiratory Rate 20 12/23/23 10:00 Blood Pressure 131/80 12/23/23 10:00 Blood Pressure Mean 97 12/23/23 10:00 Blood Pressure Left Arm 158/106 12/21/23 08:07 Blood Pressure Location Right Arm 12/23/23 10:00 Blood Pressure Position Sitting 12/23/23 10:00 O2 Sat by Pulse Oximetry 94 L 12/23/23 10:00 Oxygen Delivery Method Room Air 12/23/23 10:00 Oxygen Flow Rate 1 12/22/23 20:15 Height 5 ft 7 in 12/21/23 08:07 Weight 360 lb 12/21/23 08:07 Telemetry Type Remote Telemetry 12/23/23 07:00 Telemetry Monitoring Continues 12/23/23 07:00 Irregular Telemetry Rate (Approximate) 90-100 BPM 12/23/23 07:00 Telemetry Heart Rate 126 H 12/22/23 19:00 Telemetry SPO2 95 12/23/23 07:00 EKG UT Interval 0.09 L 12/22/23 07:00 EKG QRS Interval 0.07 12/23/23 07:00 Telemetry Strip Reading Afib 12/23/23 07:00 Lab Results Last 24 Hours: 12/23/23 12/22/23 05:21 05:17 WBC 14.35 H D RBC 4.58 Hgb 13.6 Hct 42.8 MCV 93.4 MCH 29.7 MCHC 31.8 RDW Coeff of Andrei 14.0 Plt Count 239 Immature Gran % (Auto) 0.5 Neut % (Auto) 81.2 H Lymph % (Auto) 10.4 [place] % (Auto) 7.7 Eos % (Auto) 0.1 Baso % (Auto) 0.1 Neut # (Auto) 11.7 H Lymph # (Auto) 1.5 [place] # (Auto) 1.1 Eos # (Auto) 0.0 Baso # (Auto) 0.0 Immature Gran # (Auto) 0.1 Sodium 137.3 Potassium 4.03 Chloride 107.0 Carbon Dioxide 23.2 Anion Gap 11.13 BUN 25.3 H Creatinine 0.90 Estimated GFR (MDRD) 65.00 BUN/Creatinine Ratio 28.11 Glucose 239.0 H Calcium 9.66 Magnesium 2.30 Total Bilirubin 1.24 AST 29.3 ALT 40.1 H Alkaline Phosphatase 103.3 Total Protein 7.79 Albumin 4.18 Globulin 3.61 Albumin/Globulin Ratio 1.15 Discharge Instructions Discharge Planning: Discharge Planning > [address] Tucker Gomez. Discharge Medications: Medications at Discharge (Home Meds & RX) Discharge Plan Discharge Discharge Orders: Discharge Patient (ONCE); Ordered 12/23/23 Ordered By: YOSEPH GRIMES Activity Restrictions/Additional Instructions: DISCHARGE TO HOME TODAY DX: [facility]: [facility] INCREASED CARDIZEM DOSE (start tomorrow) NEW: MEDROL DOSE MIAH (start today), ALBUTEROL INHALER NEEDED FOR SHORTNESS OF BREATH F/U WITH CARDIOLOGY SCHEDULED Patient Disposition: HOME SELF-CARE Prescriptions: New diltiazem HCl 240 mg capsule,extended release 24 hr 240 mg PO DAILY Qty: 30 0RF methylprednisolone [Medrol (Miah)] 4 mg tablets,dose pack See Rx Instructions .ROUTE .COMPLEX Qty: 21 0RF Rx Instructions: orally per package directions albuterol sulfate [ProAir HFA] 90 mcg/actuation HFA aerosol inhaler 1 inh inhalation Q6H PRN (Reason: shortness of breath or wheezing) Qty: 6.7 0RF Continued doxazosin 2 mg tablet 2 mg PO QPM clotrimazole-betamethasone 1-0.05 % cream 1 applic TOPICAL QID PRN (Reason: rash) Eliquis 5 mg tablet 5 mg PO BID Patient Comments: TAKE 1 TABLET BY MOUTH EVERY 12 HOURS pregabalin 200 mg capsule 200 mg PO BID Mounjaro 5 mg/0.5 mL pen injector 5 mg SUBCUT WEEKLY Patient Comments: ADMINISTER 5 MG UNDER THE SKIN 1 TIME EVERY WEEK DIRECTED potassium chloride 20 mEq tablet,ER particles/crystals 20 meq PO BID pantoprazole 40 mg tablet,delayed release (DR/EC) 40 mg PO DAILY tizanidine 4 mg tablet 4 mg PO BID PRN (Reason: muscle spasticity) losartan 25 mg tablet 25 mg PO DAILY bumetanide 0.5 mg tablet 0.5 mg PO BID metformin 500 mg tablet 500 mg PO BID Discontinued diltiazem HCl 180 mg capsule,extended release 24hr 180 mg PO DAILY Did you review [place] [employer] for ALL controlled substances?: Not Applicable Discussed opioids are addictive and Narcan is available by prescription or from pharmacy.: No Condition: Stable Referrals: MEHNAZ WASHINGTON [Primary Care Provider] - 12/30/23 8:15 am
== END 2023-12-23 13:19 | disposition home or self-care (01) | DRG 865 ==
LOC: MEDSURG B 02:58 → ED 02:58 → MEDSURG B 08:08
PROVIDERS: ADMIT Physician Assistant; ATTEND Hospitalist

== ENCOUNTER 2024-07-21 14:51 | Observation (INO) ==
[2024-07-21 15:31] LABS: BASOPHILS # (AUTO) 0.1 K/uL (0-0.2); BASOPHILS % (AUTO) 0.8 % (0.0-3.0); EOSINOPHILS # (AUTO) 0.1 K/ul (0.0-0.7); EOSINOPHILS % (AUTO) 1.3 % (0.0-7.0); HEMATOCRIT 35.3 % (37.0-47.0); HEMOGLOBIN 11.9 g/dl (12.0-16.0); IMMATURE GRANULOCYTE % (AUTO) 0.3 % (0.0-5.0); LYMPHOCYTES # (AUTO) 1.4 K/uL (0.60-3.4); LYMPHOCYTES % (AUTO) 22.1 (10.0-50.0); MEAN CORPUSCULAR HGB CONC 33.7 (31.8-35.4); MEAN CORPUSCULAR VOLUME 94.9 fl (81.0-99.0); MONOCYTES # (AUTO) 0.5 K/uL (0.4-2.0); MONOCYTES % (AUTO) 7.3 (0-10); NEUTROPHILS # (AUTO) 4.3 K/ul (2.0-6.9); NEUTROPHILS % (AUTO) 68.2 % (42.2-75.2); PLATELET COUNT 184 10^3/uL (140-440); RDW COEFFICIENT OF VARIATION 13.7 % (11.6-14.8); RED BLOOD COUNT 3.72 10^6/ul (4.20-5.40); WHITE BLOOD COUNT 6.29 K/ul (4.6-10.2)
--- NOTE | 2024-07-21 15:31 | ED.PDOC ---
General ED Provider: Dr. MARTINA NORRIS DO Chief Complaint: Syncope Time Seen by Provider: 07/21/24 15:42 Information Source: Patient Primary Care Provider: MEHNAZ WASHINGTON What is Opioid Naive?: *Opioid Naive implies the patient is not already taking opioids or not chronically receiving opioids on a daily basis. *PRN dosing is not "usually" associated with tolerance. *Patients are at higher risk of over-sedation and aspiration. What is Opioid Tolerant?: *Opioid Tolerance implies less than the expected response to an opioid. *Acquired tolerance is defined by the patient taking 60mg of oral morphine daily (or equianalgesic dose of another opioid) for 1 week or more. *Often associated with chronic pain. *May take more than usual dose to achieve desired pain control. [facility] Medical History Hypertension I10 - Essential (primary) hypertension (ICD-10) Diabetes type 2, controlled E11.9 - Type 2 diabetes mellitus without complications (ICD-10) Atrial fibrillation I48.91 - Unspecified atrial fibrillation (ICD-10) Family History UNCLE No problems noted. Unknown Adopted Pt is adopted. unknown family hx. Social History Smoking and tobacco status: Never smoker Alcohol intake: current Alcohol intake frequency: holidays/special occasions only Surgical History H/O emergency section Z98.891 - History of uterine scar from previous surgery (ICD-10) History of cholecystectomy Z90.49 - Acquired absence of other specified parts of digestive tract (ICD- 10) History of arthroplasty of both knees Z96.653 - Presence of artificial knee joint, bilateral (ICD-10) Previous back surgery Z98.890 - Other specified postprocedural states (ICD-10) Female Reproductive History Menstrual Hx Hysterectomy: No Hx Tubal Ligation: No Course Course 07/21/24 15:26 07/21/24 15:26 Orders, Labs, Meds: Lab Review 07/21/24 07/21/24 15:26 16:08 WBC 6.29 RBC 3.72 L Hgb 11.9 L Hct 35.3 L MCV 94.9 MCH 32.0 H MCHC 33.7 RDW Coeff of Andrei 13.7 Plt Count 184 Immature Gran % (Auto) 0.3 Neut % (Auto) 68.2 Lymph % (Auto) 22.1 [facility] % (Auto) 7.3 Eos % (Auto) 1.3 Baso % (Auto) 0.8 Neut # (Auto) 4.3 Lymph # (Auto) 1.4 [facility] # (Auto) 0.5 Eos # (Auto) 0.1 Baso # (Auto) 0.1 Immature Gran # (Auto) 0.0 Sodium 131.3 L Potassium 2.49 L* Chloride 87.4 L Carbon Dioxide 33.8 H Anion Gap 12.59 BUN 27.9 H Creatinine 1.80 H Estimated GFR (MDRD) 29.00 BUN/Creatinine Ratio 15.50 Glucose 620.9 H* Calcium 8.54 Total Bilirubin 1.22 AST 114.3 H ALT 85.5 H Alkaline Phosphatase 94.7 Troponin I < 0.012 NT-Pro-B Natriuret Pep 1380 H Total Protein 6.67 Albumin 3.87 Globulin 2.80 Albumin/Globulin Ratio 1.38 SARS CoV-2 RNA Rapid PILAR Negative Orders Category Date Time Status PLACE PATIENT OBSERVATION .TO [facility] (MONITORED BED ADMISSION 07/21/24 17:30 Active ) ECHOCARDIOGRAM 2D-M MODE Routine CARDIO 07/22/24 08:00 Ordered EKG-(ED ONLY) Stat CARDIO 07/21/24 15:13 Completed ACTIVITY .Up With Assistance CARE 07/21/24 17:30 Active BLOOD GLUCOSE MONITORING (MED/SURG) 0630,1100,1700,2100 CARE 07/21/24 17:31 Active GIVE HS SNACK 2100 CARE 07/21/24 17:31 Active INTAKE & OUTPUT Q8HR CARE 07/21/24 17:30 Active IP: INSERT SALINE LOCK ONCE CARE 07/21/24 17:30 Active TELEMETRY MONITORING TELE CARE 07/21/24 17:24 Active TELEMETRY MONITORING TELE CARE 07/21/24 17:30 Active VITAL SIGNS Q4HR CARE 07/21/24 17:30 Active ADA 1800 VIRGIL. DIET DIETARY 07/21/24 Dinner Ordered HS SNACK DIETARY 07/21/24 Dinner Ordered ED APPLY ICE AFFECTED AREA .ONCE EMERGENCY 07/21/24 15:45 Active CBC W/ AUTO DIFF DAILY@0600 LAB 07/22/24 06:00 Ordered CBC W/ AUTO DIFF DAILY@0600 LAB 07/23/24 06:00 Ordered CBC W/ AUTO DIFF Stat LAB 07/21/24 15:26 Completed COMPREHENSIVE METABOLIC PANEL DAILY@0600 LAB 07/22/24 06:00 Ordered COMPREHENSIVE METABOLIC PANEL DAILY@0600 LAB 07/23/24 06:00 Ordered COMPREHENSIVE METABOLIC PANEL Stat LAB 07/21/24 15:26 Completed COVID [SARS COV-2 RNA RAPID PILAR] Stat LAB 07/21/24 16:08 Completed PROBNP ED [NT-PROBNP(ED)] Stat LAB 07/21/24 15:26 Completed TROPONIN I Stat LAB 07/21/24 15:26 Completed URINALYSIS C & S IF INDICATED Stat LAB 07/21/24 15:13 Uncollected Acetaminophen [Tylenol] Meds 07/21/24 17:30 Active 650 mg PO Q4H PRN Insulin Lispro [Humalog (10 ml Vial)] Meds 07/21/24 17:30 Active See Protocol SUBCUT PRN PRN Magnesium Sulfate in Water [Magnesium Sulf 2 G/50 ml Meds 07/21/24 16:55 Discontinued Bag] 2 gm in 50 ml IV ONCE Ondansetron HCl/Pf [Zofran 4 mg/2 ml] Meds 07/21/24 17:30 Active 4 mg IVP Q6H PRN Potassium Chloride [K-Dur] Meds 07/21/24 16:57 Discontinued 40 meq PO ONCE ONE Potassium Chloride [K-Dur] Meds 07/21/24 21:00 Once 40 meq PO ONCE ONE Potassium Chloride in 0.9%NaCl [Sodium Chloride 0.9%- Meds 07/21/24 16:55 Discontinued KCl 40Meq] 1,000 ml IV 250 mls/hr Sodium Chloride 0.9% [Sodium Chloride] 1,000 ml Meds 07/21/24 17:30 Active IV 100 mls/hr Sodium Chloride 0.9% [Sodium Chloride] 1,000 ml Meds 07/21/24 15:29 Discontinued IV BOLUS CHEST, 1V AP ONLY Stat RADS 07/21/24 15:[address] HEAD W/O CONTRAST Stat RADS 07/21/24 15:12 Completed SHOULDER, LEFT MIN 2V Stat RADS 07/21/24 15:44 Completed Medications Generic Name Dose Route Start Last Admin Trade Name Antoni PRN Reason Stop Dose Admin Acetaminophen 650 mg 07/21/24 17:30 Acetaminophen 325 Mg Tablet PO Q4H PRN Mild Pain Apixaban 5 mg 07/21/24 21:00 Apixaban 5 Mg Tab PO BID NEO Sodium Chloride 1,000 mls @ 100 mls/hr 07/21/24 17:30 Sodium Chloride IV .Q10H NEO Insulin Human Lispro 0 unit 07/21/24 17:30 Insulin Lispro 100 Unit/Ml (10 Ml Vial) SUBCUT PRN PRN Hyperglycemia Protocol Non-Formulary Medication 5 mg 07/22/24 09:00 Levocetirizine PO DAILY NEO Non-Formulary Medication 1 mg 07/22/24 09:00 Estradiol PO DAILY NEO Non-Formulary Medication 10 mg 07/22/24 09:00 Medroxyprogesterone PO DAILY NEO Ondansetron HCl 4 mg 07/21/24 17:30 Ondansetron Hcl/Pf 4 Mg/2 Ml Sdv IVP Q6H PRN Nausea / Vomiting Pantoprazole Sodium 40 mg 07/22/24 09:00 Pantoprazole Sodium 40 Mg Tablet.Dr PO DAILY NEO Potassium Chloride 40 meq 07/21/24 21:00 Potassium Chloride 20 Meq Tab PO 07/21/24 21:01 ONCE ONE Pregabalin 200 mg 07/21/24 21:00 Pregabalin 50 Mg Capsule PO BID NEO Tizanidine HCl 4 mg 07/21/24 20:03 Tizanidine Hcl 4 Mg Tablet PO BID PRN muscle spasm Discontinued Medications Generic Name Dose Route Start Last Admin Trade Name Antoni PRN Reason Stop Dose Admin Sodium Chloride 1,000 mls @ 1,000 mls/hr 07/21/24 15:29 07/21/24 16:33 Sodium Chloride IV 07/21/24 16:28 Infused BOLUS ONE Infusion Potassium Chloride/Sodium Chloride 1,000 mls @ 250 mls/hr 07/21/24 16:55 07/21/24 17:52 Sodium Chloride 0.9%-Kcl 40meq IV 07/21/24 20:54 250 mls/hr .Q4H ONE Administration MAGNESIUM SULFATE IN WATER 2 gm in 50 mls @ 25 mls/hr 07/21/24 16:55 07/21/24 17:51 Magnesium Sulf 2 G/50 Ml Bag IV 07/21/24 18:54 25 mls/hr ONCE ONE Administration Sodium Chloride 1,000 mls @ 1,000 mls/hr 07/21/24 18:52 Sodium Chloride IV 07/21/24 19:51 BOLUS ONE Potassium Chloride 40 meq 07/21/24 16:57 07/21/24 17:51 Potassium Chloride 20 Meq Tab PO 07/21/24 16:58 40 meq ONCE ONE Administration Vital Signs: Temp Pulse Resp BP Pulse Ox 07/21/24 15:20 128 H 89/57 L 07/21/24 15:20 82 100/58 L 07/21/24 15:05 97.5 F L 71 20 92/58 L 98 Discharge Plan Discharge Patient Disposition: ADMITTED INPATIENT Discharge Problem: Diuretic-induced hypokalemia, Syncope due to orthostatic hypotension, ZAINAB (acute kidney injury) Did you review [place] [facility] for ALL controlled substances?: Not Applicable ED Provider: MARTINA NORRIS Condition: Stable
[2024-07-21] MEDS: SODIUM CHLORIDE 1,000 ML IV ONE (15:36)
[2024-07-21 15:48] LABS: ALANINE AMINOTRANSFERASE 85.5 U/L (0-35); ALBUMIN 3.87 g/dL (3.5-5.0); ALKALINE PHOSPHATASE 94.7 U/L (38-126); ASPARTATE AMINO TRANSFERASE 114.3 U/L (14-36); BILIRUBIN,TOTAL 1.22 mg/dL (0.2-1.3); BLOOD UREA NITROGEN 27.9 mg/dL (7-17); CALCIUM 8.54 mg/dL (8.4-10.2); CARBON DIOXIDE 33.8 mmol/L (22-30.0); CHLORIDE 87.4 mmol/L (98-107); CREATININE 1.8 mg/dL (0.60-1.30); SODIUM 131.3 mmol/L (134.5-145); TOTAL PROTEIN 6.67 g/dL (6.3-8.2)
[2024-07-21 15:55] LABS: POTASSIUM 2.49 mmol/L (3.5-5.1)
[2024-07-21 15:56] LABS: GLUCOSE 620.9 mg/dL (74-106)
[2024-07-21 16:28] LABS: SARS COV-2 RNA RAPID NAAT NEGATIVE (NEGATIVE)
--- NOTE | 2024-07-21 16:38 | DI ---
EXAM: CHEST ONE VIEW, FRONTAL VIEW ONLY. HISTORY: Syncope. COMPARISON: 12/21/2023. FINDINGS: The heart size is enlarged. There is no pulmonary vascular congestion. Increased opacity in the left perihilar region is consistent with prominent mediastinal fat as demonstrated on the tiana or CT. The lungs are clear. No pleural effusion or pneumothorax is seen. No acute osseous abnormal ity is identified. Since the prior study, there has been no significant interval change. IMPRESSION: No acute cardiopulmonary process.
--- NOTE | 2024-07-21 16:46 | DI ---
EXAM: RADIOGRAPHS, LEFT SHOULDER HISTORY: Left shoulder pain. COMPARISON: None. TECHNIQUE: Three views. FINDINGS: Bone mineralization is normal. There is no fracture or dislocation. The joint spaces are maintained. No erosions are detected. No focal soft tissue abnormality is seen. IMPRESSION: No acute abnormality of the left shoulder.
--- NOTE | 2024-07-21 17:01 | CT ---
EXAMINATION: HEAD CT WITHOUT CONTRAST HISTORY: Syncope. Head trauma. TECHNIQUE: Noncontrast CT of the brain was performed with images acquired from skull base to vertex. 2-D coronal and sagittal reformatted images were obtained from the axial source images. Contrast Dose: None. CT Dose Reduction Techniques Performed: Yes. COMPARISON: None. FINDINGS: Topogram demonstrates no significant abnormality. Intraparenchymal hemorrhage: None. Parenchyma: Normal harvey-white differentiation. No mass effect or midline shift. Chronic: Mild decreased attenuation of the periventricular white matter consistent with microangiopat hic ischemic change. Small old lacunar infarcts in the left basal ganglia. Vascular calcifications consistent with arthrosclerosis. Extra-axial spaces and basal cisterns: Normal. Ventricles: Mild enlargement of the ventricles and subarachnoid spaces consistent with atrophy. Paranasal sinuses and mastoid air cells: Visualized portions of paranasal sinuses are clear. Mastoid air cells are clear. Orbits: Normal visualized portions. Sella/Skull Base: Normal. Other: Scalp and visualized soft tissues are normal. Calvarium is normal. IMPRESSION: 1. Mild atrophy. 2. Mild microangiopathic ischemic change. 3. Atherosclerosis. 4. No intracranial hemorrhage. 5. Small old lacunar infarcts in the left basal ganglia. 6. Otherwise unremarkable noncontrast CT scan of the brain. All CT scans are performed using dose optimization techniques as appropriate to the performed exam an d include at least one of the following: Automated exposure control, adjustment of the mA and/or kV according t o size, and the use of iterative reconstruction technique.
[2024-07-21] MEDS ORDERED: ZOFRAN 4 MG/2 ML IVP PRN (17:30)
[2024-07-21] MEDS: MAGNESIUM SULF 2 G/50 ML BAG 2 GM/50 ML PIGGYBACK IV ONE (17:51)
[2024-07-21] MEDS: K-DUR PO ONE ×2 (17:51→21:03)
[2024-07-21] MEDS: SODIUM CHLORIDE 0.9%-KCL 40MEQ 1,000 ML IV ONE (17:52)
[2024-07-21] MEDS ORDERED: SODIUM CHLORIDE 1,000 ML IV ONE (18:52)
[2024-07-21] MEDS ORDERED: HUMULIN R (10ML) IVP STA (18:52)
[2024-07-21] MEDS: HUMALOG (10 ML VIAL) SUBCUT PRN (20:45)
[2024-07-21] MEDS: LYRICA PO SCH (21:03)
[2024-07-21] MEDS: ELIQUIS PO SCH (21:03)
[2024-07-21] MEDS: TYLENOL PO PRN (21:03)
[2024-07-21] MEDS: ZANAFLEX PO PRN (21:03)
[2024-07-21 21:39] VITALS: BMI 55.1
[2024-07-21] MEDS: SODIUM CHLORIDE 1,000 ML IV SCH (21:42)
[2024-07-21 22:13] LABS: BILIRUBIN,URINE Negative (NEGATIVE); CLARITY,URINE Clear (CLEAR); COLOR,URINE Yellow (YELLOW); KETONES,URINE Negative (NEGATIVE); LEUKOCYTE ESTERASE ,URINE Negative (NEGATIVE); NITRITE,URINE Negative (NEGATIVE); PH,URINE 5.5 (5-9); PROTEIN,URINE Negative (NEGATIVE); URINE, BLOOD Trace-intact (NEGATIVE); UROBILINOGEN,URINE 0.2 (0.2)
[2024-07-21 22:21] LABS: GLUCOSE, URINE (UA) 3+ (NEGATIVE); SQUAMOUS EPITHELIAL CELL,UR 0-2 (0-5); URINE RBC, MICROSCOPIC 0-2 (0-2); URINE WBC, MICROSCOPIC 0-2 (0-2)
[2024-07-22 05:43] LABS: BASOPHILS % (AUTO) 0.7 % (0.0-3.0); EOSINOPHILS # (AUTO) 0.1 K/ul (0.0-0.7); EOSINOPHILS % (AUTO) 2.3 % (0.0-7.0); HEMATOCRIT 34.6 % (37.0-47.0); HEMOGLOBIN 11.2 g/dl (12.0-16.0); IMMATURE GRANULOCYTE % (AUTO) 0.5 % (0.0-5.0); LYMPHOCYTES # (AUTO) 1.5 K/uL (0.60-3.4); LYMPHOCYTES % (AUTO) 26.3 (10.0-50.0); MEAN CORPUSCULAR HEMOGLOBIN 32.4 pg (27.0-31.0); MEAN CORPUSCULAR HGB CONC 32.4 (31.8-35.4); MONOCYTES # (AUTO) 0.5 K/uL (0.4-2.0); MONOCYTES % (AUTO) 8.8 (0-10); NEUTROPHILS # (AUTO) 3.4 K/ul (2.0-6.9); NEUTROPHILS % (AUTO) 61.4 % (42.2-75.2); PLATELET COUNT 142 10^3/uL (140-440); RDW COEFFICIENT OF VARIATION 14.3 % (11.6-14.8); RED BLOOD COUNT 3.46 10^6/ul (4.20-5.40); WHITE BLOOD COUNT 5.58 K/ul (4.6-10.2)
[2024-07-22 06:02] LABS: ALANINE AMINOTRANSFERASE 89.1 U/L (0-35); ALBUMIN 3.65 g/dL (3.5-5.0); ALKALINE PHOSPHATASE 72.7 U/L (38-126); ASPARTATE AMINO TRANSFERASE 125.3 U/L (14-36); BILIRUBIN,TOTAL 1.27 mg/dL (0.2-1.3); BLOOD UREA NITROGEN 27.7 mg/dL (7-17); CALCIUM 8.14 mg/dL (8.4-10.2); CARBON DIOXIDE 27.5 mmol/L (22-30.0); CHLORIDE 97.9 mmol/L (98-107); CREATININE 1.69 mg/dL (0.60-1.30); GLUCOSE 267.2 mg/dL (74-106); SODIUM 134.1 mmol/L (134.5-145); TOTAL PROTEIN 6.58 g/dL (6.3-8.2)
[2024-07-22 06:05] LABS: POTASSIUM 2.74 mmol/L (3.5-5.1)
[2024-07-22] MEDS: K-DUR PO ONE ×3 (06:55→18:05)
[2024-07-22] MEDS: POTASSIUM CHLORIDE 20 MEQ/100 ML PREMIX 20 MEQ/100 ML BAG IV ONE (07:03)
[2024-07-22] MEDS: ESTRADIOL PO SCH (08:37)
[2024-07-22] MEDS: CLARITIN PO SCH (08:38)
[2024-07-22] MEDS: PROTONIX PO SCH (08:40)
[2024-07-22] MEDS: SODIUM CHLORIDE 0.9%-KCL 40MEQ 1,000 ML IV SCH (09:41)
[2024-07-22 12:20] LABS: BLOOD UREA NITROGEN 24.1 mg/dL (7-17); CALCIUM 8.72 mg/dL (8.4-10.2); CARBON DIOXIDE 31.8 mmol/L (22-30.0); CHLORIDE 97.6 mmol/L (98-107); CREATININE 1.53 mg/dL (0.60-1.30); GLUCOSE 280.9 mg/dL (74-106); POTASSIUM 3.07 mmol/L (3.5-5.1); SODIUM 136.7 mmol/L (134.5-145)
--- NOTE | 2024-07-22 12:48 | PCM ---
Date of Service Date Seen by Provider: 07/22/24 Time Seen by Provider: 08:50 Admit Day/Time Admission Date: 07/21/24 Admission Time: 17:30 Reason for Admission Chief Complaint: HYPOKALEMIA,SYNCOPE Hospital Provider Hospital Provider: YOSEPH GRIMES PA-C, [facility] Primary Care Physician Primary Care Physician: MEHNAZ WASHINGTON History of Present Illness History of Present Illness: Patient is a 53 year old female with pmhx of HFpEF, a fib on anticoagulation, hypokalemia, hypertension, DMT2, GERD who presents to ER with complaint of syncope. Patient states she was at home and felt light headed. She went to her bed to lie down. She felt better after lying down but then when she got up, she passed out for a few seconds. This was witnessed by her . No n/v/d, incontinence, seizure activity. Patient woke again within a few seconds. Hurt her left arm and has a bruise. In the ER was found to have orthostatic hypotension, potassium of 2.4, and Cr of 1.8 which is above her baseline. G lucose also 600s. Patient was given fluids and potassium and admitted to med surg. This morning patient is feeling better, able to stand without feeling light headed. Potassium and Cr mildly improved this morning. Case Discussed With Case Discussed With: Patient's case was discussed with the ER Physicians, Dr. Moe [facility] Medical History Hypertension I10 - Essential (primary) hypertension (ICD-10) Diabetes type 2, controlled E11.9 - Type 2 diabetes mellitus without complications (ICD-10) Atrial fibrillation I48.91 - Unspecified atrial fibrillation (ICD-10) Surgical History H/O emergency section Z98.891 - History of uterine scar from previous surgery (ICD-10) History of cholecystectomy Z90.49 - Acquired absence of other specified parts of digestive tract (ICD- 10) History of arthroplasty of both knees Z96.653 - Presence of artificial knee joint, bilateral (ICD-10) Previous back surgery Z98.890 - Other specified postprocedural states (ICD-10) Family History UNCLE No problems noted. Unknown Adopted Pt is adopted. unknown family hx. Social History Smoking and tobacco status: Never smoker Alcohol intake: current Alcohol intake frequency: holidays/special occasions only Allergies Allergies Allergy/AdvReac Type Severity Reaction Status Date / Time meperidine (From Demerol) AdvReac Severe Hives Verified 07/21/24 15:11 Current Medications Home Medications apixaban 5 mg tablet (Eliquis) 5 mg PO BID 12/21/23 [History Confirmed 07/21/24 Last Taken 07/21/24 08:00] bumetanide 0.5 mg tablet 1 mg PO BID 12/21/23 [History Confirmed 07/21/24 Last Taken 07/21/24 08:00] doxazosin 2 mg tablet 2 mg PO QPM 12/21/23 [History Confirmed 07/21/24 Last Taken 07/20/24 21:00] losartan 25 mg tablet 25 mg PO BID 12/21/23 [History Confirmed 07/21/24 Last Taken 07/21/24 08:00] metformin 500 mg tablet 500 mg PO BID 12/21/23 [History Confirmed 07/21/24 Last Taken 07/21/24 08:00] pantoprazole 40 mg tablet,delayed release 40 mg PO DAILY 12/21/23 [History Confirmed 07/21/24 Last Taken 07/21/24 08:00] potassium chloride 20 mEq tablet,extended release(part/cryst) 20 meq PO BID 12/21/23 [History Confirmed 07/21/24 Last Taken 12/20/23] pregabalin 200 mg capsule 200 mg PO BID 12/21/23 [History Confirmed 07/21/24 Last Taken 07/21/24 08:00] tizanidine 4 mg tablet 4 mg PO BID PRN muscle spasticity 12/21/23 [History Confirmed 07/21/24 Last Taken 07/20/24] diltiazem HCl 240 mg capsule,24 hr,extended release 240 mg PO DAILY #30 caps 12/23/23 [Rx Confirmed 07/21/24 Last Taken 07/21/24 08:00] estradiol 1 mg tablet 1 mg PO DAILY 02/13/24 [History Confirmed 07/21/24 Last Taken 07/21/24 08:00] levocetirizine 5 mg tablet 5 mg PO DAILY 02/13/24 [History Confirmed 07/21/24 Last Taken 07/21/24 08:00] medroxyprogesterone 10 mg tablet 10 mg PO DAILY 02/13/24 [History Confirmed 07/21/24 Last Taken 07/21/24 08:00] metoprolol succinate 25 mg tablet,extended release 24 hr 25 mg PO DAILY 02/13/24 [History Confirmed 07/21/24 Last Taken 07/21/24 08:00] semaglutide 0.25 mg or 0.5 mg (2 mg/3 mL) subcutaneous pen injector (Ozempic) 0.5 mg subcut WEEKLY 02/13/24 [History Confirmed 07/21/24 Last Taken 07/15/24] Home Acetaminophen (Acetaminophen 325 Mg Tablet) 650 mg PO Q4H PRN PRN Reason: Mild Pain Last Admin: 07/22/24 02:11 Dose: 650 mg Apixaban (Apixaban 5 Mg Tab) 5 mg PO BID [facility] Last Admin: 07/22/24 08:38 Dose: 5 mg Estradiol (Estradiol 1 Mg Tablet) 1 mg PO DAILY [facility] Last Admin: 07/22/24 08:37 Dose: 1 mg Potassium Chloride/Sodium Chloride (Sodium Chloride 0.9%-Kcl 40meq) 1,000 mls @ 100 mls/hr IV .Q10H [facility] Last Admin: 07/22/24 09:41 Dose: 100 mls/hr Insulin Human Lispro (Insulin Lispro 100 Unit/Ml (10 Ml Vial)) 0 unit SUBCUT PRN PRN; Protocol PRN Reason: Hyperglycemia Last Admin: 07/22/24 12:04 Dose: 10 unit Loratadine (Loratadine 10 Mg Tablet) 10 mg PO DAILY [facility] Last Admin: 07/22/24 08:38 Dose: 10 mg Non-Formulary Medication (Medroxyprogesterone) 10 mg PO DAILY [facility] Last Admin: 07/22/24 08:46 Dose: 10 mg Ondansetron HCl (Ondansetron Hcl/Pf 4 Mg/2 Ml Sdv) 4 mg IVP Q6H PRN PRN Reason: Nausea / Vomiting Pantoprazole Sodium (Pantoprazole Sodium 40 Mg Tablet.Dr) 40 mg PO QDAC2 [facility] Last Admin: 07/22/24 08:40 Dose: 40 mg Potassium Chloride (Potassium Chloride 20 Meq Tab) 40 meq PO ONCE ONE Stop: 07/22/24 19:01 Pregabalin (Pregabalin 50 Mg Capsule) 200 mg PO BID [facility] Last Admin: 07/22/24 08:38 Dose: 200 mg Tizanidine HCl (Tizanidine Hcl 4 Mg Tablet) 4 mg PO BID PRN PRN Reason: muscle spasm Last Admin: 07/21/24 21:03 Dose: 4 mg Discontinued Medications Sodium Chloride (Sodium Chloride) 1,000 mls @ 1,000 mls/hr IV BOLUS ONE Stop: 07/21/24 16:28 Last Infusion: 07/21/24 16:33 Dose: Infused Potassium Chloride/Sodium Chloride (Sodium Chloride 0.9%-Kcl 40meq) 1,000 mls @ 250 mls/hr IV .Q4H ONE Stop: 07/21/24 20:54 Last Infusion: 07/22/24 04:58 Dose: Infused MAGNESIUM SULFATE IN WATER (Magnesium Sulf 2 G/50 Ml Bag) 2 gm in 50 mls @ 25 mls/hr IV ONCE ONE Stop: 07/21/24 18:54 Last Admin: 07/21/24 17:51 Dose: 25 mls/hr Sodium Chloride (Sodium Chloride) 1,000 mls @ 100 mls/hr IV .Q10H [facility] Last Admin: 07/22/24 06:16 Dose: 100 mls/hr Potassium Chloride (Potassium Chloride 20 Meq/100 Ml Premix) 20 meq in 100 mls @ 50 mls/hr IV ONCE ONE Stop: 07/22/24 08:33 Last Admin: 07/22/24 07:03 Dose: 50 mls/hr Potassium Chloride (Potassium Chloride 20 Meq Tab) 40 meq PO ONCE ONE Stop: 07/21/24 16:58 Last Admin: 07/21/24 17:51 Dose: 40 meq Potassium Chloride (Potassium Chloride 20 Meq Tab) 40 meq PO ONCE ONE Stop: 07/21/24 21:01 Last Admin: 07/21/24 21:03 Dose: 40 meq Potassium Chloride (Potassium Chloride 20 Meq Tab) 40 meq PO ONCE ONE Stop: 07/22/24 06:36 Last Admin: 07/22/24 06:55 Dose: 40 meq Potassium Chloride (Potassium Chloride 20 Meq Tab) 40 meq PO ONCE ONE Stop: 07/22/24 13:01 Last Admin: 07/22/24 13:35 Dose: 40 meq Opioid Naive vs. Tolerant Does Patient Take Opioids?: No Is Patient Opioid Naive?: Yes What is Opioid Naive?: *Opioid Naive implies the patient is not already taking opioids or not chronically receiving opioids on a daily basis. *PRN dosing is not "usually" associated with tolerance. *Patients are at higher risk of over-sedation and aspiration. Is Patient Opioid Tolerant?: No What is Opioid Tolerant?: *Opioid Tolerance implies less than the expected response to an opioid. *Acquired tolerance is defined by the patient taking 60mg of oral morphine daily (or equianalgesic dose of another opioid) for 1 week or more. *Often associated with chronic pain. *May take more than usual dose to achieve desired pain control. Review of Systems Constitutional: Denies Fever Head: Reports Normocephalic and Atraumatic Cardiovascular: Denies Chest pain, Chest Pressure or Edema Respiratory: Denies Cough or Shortness of air Gastrointestinal: Denies Nausea, Vomiting, Diarrhea, Abdominal pain or Melena Genitourinary: Denies Dysuria or Frequency Dermatologic: Denies Rashes Neurological: Reports Dizziness and Syncope Physical examination Most Recent Vital Signs: Most Recent Vital Signs Temperature 98.5 F 07/22/24 10:00 Temperature Source Temporal Artery Scan 07/22/24 10:00 Temperature Source Temporal Artery Scan 07/21/24 15:05 Pulse Rate 108 H 07/22/24 10:00 Respiratory Rate 18 07/22/24 10:00 Blood Pressure 124/81 07/22/24 10:00 Blood Pressure Mean 95 07/22/24 10:00 Blood Pressure Left Arm 121/81 07/21/24 20:23 Blood Pressure Location Left Radial Artery 07/22/24 10:00 Blood Pressure Position Sitting 07/22/24 10:00 O2 Sat by Pulse Oximetry 96 07/22/24 10:00 Oxygen Delivery Method Room Air 07/22/24 10:00 Height 5 ft 7 in 07/21/24 20:23 Weight 159.7 kg 07/21/24 20:23 Telemetry Type Bedside Monitor 07/22/24 07:00 Telemetry Monitoring Continues 07/22/24 07:00 Irregular Telemetry Rate (Approximate) 70s-80s 07/22/24 07:00 Telemetry Heart Rate 126 H 12/22/23 19:00 Telemetry SPO2 98 07/21/24 20:43 EKG QRS Interval 0.08 07/22/24 07:00 Telemetry Strip Reading AFIB 07/22/24 07:00 Appearance: Positive No Apparent Distress, Alert and Oriented x3 and Obese Skin: Positive [place], Warm, Good Turgor and Good Color; Negative Rashes HEENT: Positive Normocephalic and Atraumatic Neck: Positive Supple and Midline Trachea Chest/Lungs: Positive Clear to Auscultation Bilaterally; Negative Rales, Rhonci or Wheezes Heart: Positive Irregular Rhythm GI/: Positive Soft, Nontender, Bowel Sounds Normal and No Distention Neurological: Positive Cranial Nerves Intact, Alert, Oriented and Muscle Strength 5/5 in Upper and Lower Extremities Bilaterally Psychiatric: Positive Oriented x4, Appropriate Mood and Appropriate Affect Additional Findings: +bruising noted to left posterior arm from fall Labs This Visit Labs This Visit: Labs This Visit 07/21/24 07/21/24 07/21/24 15:13 15:26 16:08 WBC 6.29 RBC 3.72 L Hgb 11.9 L Hct 35.3 L MCV 94.9 MCH 32.0 H MCHC 33.7 RDW Coeff of Andrei 13.7 Plt Count 184 Immature Gran % (Auto) 0.3 Neut % (Auto) 68.2 Lymph % (Auto) 22.1 Callahan % (Auto) 7.3 Eos % (Auto) 1.3 Baso % (Auto) 0.8 Neut # (Auto) 4.3 Lymph # (Auto) 1.4 [place]ahan # (Auto) 0.5 Eos # (Auto) 0.1 Baso # (Auto) 0.1 Immature Gran # (Auto) 0.0 Sodium 131.3 L Potassium 2.49 L* Chloride 87.4 L Carbon Dioxide 33.8 H Anion Gap 12.59 BUN 27.9 H Creatinine 1.80 H Estimated GFR (MDRD) 29.00 BUN/Creatinine Ratio 15.50 Glucose 620.9 H* Calcium 8.54 Magnesium Total Bilirubin 1.22 AST 114.3 H ALT 85.5 H Alkaline Phosphatase 94.7 Troponin I < 0.012 NT-Pro-B Natriuret Pep 1380 H Total Protein 6.67 Albumin 3.87 Globulin 2.80 Albumin/Globulin Ratio 1.38 Urine Color Yellow Urine Clarity Clear Urine pH 5.5 Ur Specific [place] 1.020 Urine Protein Negative Urine Glucose (UA) 3+ H Urine Ketones Negative Urine Blood Trace-intact H Urine Nitrite Negative Urine Bilirubin Negative Urine Urobilinogen 0.2 Ur Leukocyte Esterase Negative Urine Microscopic RBC 0-2 Urine Microscopic WBC 0-2 Ur Squamous Epith Cells 0-2 SARS CoV-2 RNA Rapid PILAR Negative 07/22/24 07/22/24 07/22/24 06:00 08:31 12:00 WBC 5.58 RBC 3.46 L Hgb 11.2 L Hct 34.6 L MCV 100.0 H D MCH 32.4 H MCHC 32.4 RDW Coeff of Andrei 14.3 Plt Count 142 Immature Gran % (Auto) 0.5 Neut % (Auto) 61.4 Lymph % (Auto) 26.3 [place]ahan % (Auto) 8.8 Eos % (Auto) 2.3 Baso % (Auto) 0.7 Neut # (Auto) 3.4 Lymph # (Auto) 1.5 Callahan # (Auto) 0.5 Eos # (Auto) 0.1 Baso # (Auto) 0.0 Immature Gran # (Auto) 0.0 Sodium 134.1 L 136.7 Potassium 2.74 L* 3.07 L Chloride 97.9 L 97.6 L Carbon Dioxide 27.5 31.8 H Anion Gap 11.44 10.37 BUN 27.7 H 24.1 H Creatinine 1.69 H 1.53 H Estimated GFR (MDRD) 32.00 35.00 BUN/Creatinine Ratio 16.39 15.75 Glucose 267.2 H D 280.9 H Calcium 8.14 L 8.72 Magnesium 2.88 H Total Bilirubin 1.27 AST 125.3 H ALT 89.1 H Alkaline Phosphatase 72.7 Troponin I NT-Pro-B Natriuret Pep Total Protein 6.58 Albumin 3.65 Globulin 2.93 Albumin/Globulin Ratio 1.24 Urine Color Urine Clarity Urine pH Ur Specific [place] Urine Protein Urine Glucose (UA) Urine Ketones Urine Blood Urine Nitrite Urine Bilirubin Urine Urobilinogen Ur Leukocyte Esterase Urine Microscopic RBC Urine Microscopic WBC Ur Squamous Epith Cells SARS CoV-2 RNA Rapid PILAR Imaging Imaging: EXAMINATION: HEAD CT WITHOUT CONTRAST HISTORY: Syncope. Head trauma. TECHNIQUE: Noncontrast CT of the brain was performed with images acquired from skull base to vertex. 2-D coronal and sagittal reformatted images were obtained from the axial source images. Contrast Dose: None. CT Dose Reduction Techniques Performed: Yes. COMPARISON: None. FINDINGS: Topogram demonstrates no significant abnormality. Intraparenchymal hemorrhage: None. Parenchyma: Normal harvey-white differentiation. No mass effect or midline shift. Chronic: Mild decreased attenuation of the periventricular white matter consistent with microangiopathic ischemic change. Small old lacunar infarcts in the left basal ganglia. Vascular calcifications consistent with arthrosclerosis. Extra-axial spaces and basal cisterns: Normal. Ventricles: Mild enlargement of the ventricles and subarachnoid spaces consistent with atrophy. Paranasal sinuses and mastoid air cells: Visualized portions of paranasal sinuses are clear. Mastoid air cells are clear. Orbits: Normal visualized portions. Sella/Skull Base: Normal. Other: Scalp and visualized soft tissues are normal. Calvarium is normal. IMPRESSION: 1. Mild atrophy. 2. Mild microangiopathic ischemic change. 3. Atherosclerosis. 4. No intracranial hemorrhage. 5. Small old lacunar infarcts in the left basal ganglia. 6. Otherwise unremarkable noncontrast CT scan of the brain. EXAM: RADIOGRAPHS, LEFT SHOULDER HISTORY: Left shoulder pain. COMPARISON: None. TECHNIQUE: Three views. FINDINGS: Bone mineralization is normal. There is no fracture or dislocation. The joint spaces are maintained. No erosions are detected. No focal soft tissue abnormality is seen. IMPRESSION: No acute abnormality of the left shoulder. EXAM: CHEST ONE VIEW, FRONTAL VIEW ONLY. HISTORY: Syncope. COMPARISON: 12/21/2023. FINDINGS: The heart size is enlarged. There is no pulmonary vascular congestion. Increased opacity in the left perihilar region is consistent with prominent mediastinal fat as demonstrated on the prior CT. The lungs are clear. No pleural effusion or pneumothorax is seen. No acute osseous abnormality is identified. Since the prior study, there has been no significant interval change. IMPRESSION: No acute cardiopulmonary process. Review Statement Review Statement: I have independently reviewed and interpreted the labs/EKGs/imaging that were ordered by the ER provider. I have reviewed all outside records that are available currently in our EMR including imaging/notes/labs from previous visits. Plan Plan: 1. Syncope in setting of orthostatic hypotension and dehydration - Resolved. Holding antihypertensives. Echo back 11/12 with EF 56-60%. 2. Orthostatic hypotension - Resolved. Hold antihypertensives. Likely caused by hyperglycemia and dehydration. Cont fluids today. 3. Hyperglycemia in setting of DMT2, uncontrolled - Glucose 600 upon arrival, it is improved. Pt states they had a lot of fast food this week. Humalog sliding scale, diabetic diet. A1c 8.5 in May. 4. ZAINAB, stage I - Last labs at [facility] on 06/14 show Cr of 1.2, BUN 25. Not quite at baseline, continue fluids. 5. Hypokalemia, severe, in setting of diuretic use - Slow to improve despite several oral and IV potassium replacements. Cont to replace today. Mag normal. 6. GERD - Cont home meds 7. A fib - Cont eliquis DVT Prophylaxis: Eliquis Time Spent: Greater than 80 minutes spent with patient, 50% of the time spent with this patient was devoted to counseling and coordination of care. [facility] minutes spent discussing advance care planning. Admit to: Obs Discussed Plan of Care with Dr. Tucker Gomez. Medications Medication Orders: Medications Ordered Category Date Time Status Acetaminophen [Tylenol] Meds 07/21/24 17:30 Active 650 mg PO Q4H PRN Apixaban [Eliquis] Meds 07/21/24 21:00 Active 5 mg PO BID Estradiol Meds 07/22/24 09:00 Active 1 mg PO DAILY Insulin Lispro [Humalog (10 ml Vial)] Meds 07/21/24 17:30 Active See Protocol SUBCUT PRN PRN Loratadine [Claritin] Meds 07/22/24 09:00 Active 10 mg PO DAILY Ondansetron HCl/Pf [Zofran 4 mg/2 ml] Meds 07/21/24 17:30 Active 4 mg IVP Q6H PRN Pantoprazole Sodium [Protonix] Meds 07/22/24 09:00 Active 40 mg PO QDAC2 Potassium Chloride in 0.9%NaCl [Sodium Chloride 0.9%- Meds 07/22/24 09:30 Active KCl 40Meq] 1,000 ml IV 100 mls/hr Pregabalin [Lyrica] Meds 07/21/24 21:00 Active 200 mg PO BID Tizanidine HCl [Zanaflex] Meds 07/21/24 20:03 Active 4 mg PO BID PRN medroxyprogesterone Meds 07/22/24 09:00 Active 10 mg PO DAILY
[2024-07-22] MEDS: CARDIZEM CD PO SCH (15:04)
[2024-07-23 05:23] VITALS: RESP 17
[2024-07-23 05:47] LABS: BASOPHILS % (AUTO) 0.6 % (0.0-3.0); EOSINOPHILS # (AUTO) 0.1 K/ul (0.0-0.7); EOSINOPHILS % (AUTO) 2.2 % (0.0-7.0); IMMATURE GRANULOCYTE % (AUTO) 0.6 % (0.0-5.0); LYMPHOCYTES # (AUTO) 1.5 K/uL (0.60-3.4); LYMPHOCYTES % (AUTO) 28.8 (10.0-50.0); MEAN CORPUSCULAR HEMOGLOBIN 31.8 pg (27.0-31.0); MEAN CORPUSCULAR HGB CONC 32.4 (31.8-35.4); MEAN CORPUSCULAR VOLUME 98.1 fl (81.0-99.0); MONOCYTES # (AUTO) 0.5 K/uL (0.4-2.0); MONOCYTES % (AUTO) 9.6 (0-10); NEUTROPHILS # (AUTO) 3.1 K/ul (2.0-6.9); NEUTROPHILS % (AUTO) 58.2 % (42.2-75.2); PLATELET COUNT 184 10^3/uL (140-440); RDW COEFFICIENT OF VARIATION 13.9 % (11.6-14.8); RED BLOOD COUNT 3.77 10^6/ul (4.20-5.40); WHITE BLOOD COUNT 5.34 K/ul (4.6-10.2)
[2024-07-23 06:00] LABS: ALANINE AMINOTRANSFERASE 97.8 U/L (0-35); ALBUMIN 4.07 g/dL (3.5-5.0); ALKALINE PHOSPHATASE 93.6 U/L (38-126); ASPARTATE AMINO TRANSFERASE 105.3 U/L (14-36); BILIRUBIN,TOTAL 1.61 mg/dL (0.2-1.3); BLOOD UREA NITROGEN 17.8 mg/dL (7-17); CALCIUM 8.58 mg/dL (8.4-10.2); CARBON DIOXIDE 29.9 mmol/L (22-30.0); CHLORIDE 101.1 mmol/L (98-107); CREATININE 1.19 mg/dL (0.60-1.30); POTASSIUM 3.31 mmol/L (3.5-5.1); SODIUM 138.3 mmol/L (134.5-145); TOTAL PROTEIN 7.22 g/dL (6.3-8.2)
[2024-07-23] MEDS ORDERED: CARDIZEM CD PO SCH (09:00)
--- NOTE | 2024-07-23 09:37 | DCSUM ---
Admission Date Admission Date: 07/21/24 Discharge Date Discharge Date: 07/23/24 Admission Diagnosis Admission Diagnosis: 1. Syncope in setting of orthostatic hypotension and dehydration 2. Orthostatic hypotension 3. Hyperglycemia in setting of DMT2, uncontrolled 4. ZAINAB, stage I 5. Hypokalemia, severe, in setting of diuretic use 6. GERD 7. A fib Discharge Diagnosis Discharge Diagnosis: 1. Syncope in setting of orthostatic hypotension and dehydration - Resolved. Echo back 11/12 with EF 56-60%. 2. Orthostatic hypotension - Resolved 3. Hyperglycemia in setting of DMT2, uncontrolled - Improved 4. ZAINAB, stage I - Resolved, creatinine down to 1.19 today, baseline 1.2 5. Hypokalemia, severe, in setting of diuretic use - Slow improvement, K 3.3 today 6. GERD - Cont home meds 7. A fib - Cont [facility] Provider [facility] Provider: JOEL BUCKLEY, [facility], [facility] Primary Care Physician Primary Care Physician: MEHNAZ WASHINGTON Summary of History and Physical Summary of History and Physical: Patient is a 53 year old female with pmhx of HFpEF, a fib on anticoagulation, hypokalemia, hypertension, DMT2, GERD who presents to ER with complaint of syncope. Patient states she was at home and felt light headed. She went to her bed to lie down. She felt better after lying down but then when she got up, she passed out for a few seconds. This was witnessed by her . No n/v/d, incontinence, seizure activity. Patient woke again within a few seconds. Hurt her left arm and has a bruise. In the ER was found to have orthostatic hypotension, potassium of 2.4, and Cr of 1.8 which is above her baseline. Glucose also 600s. Patient was given fluids and potassium and admitted to med surg. This morning patient is feeling better, able to stand without feeling light headed. Potassium and Cr mildly improved this morning. Hospital Course Subjective: During stay, patient was given IV fluids for treatment of orthostatic hypotension and ZAINAB. Symptoms improved. Hypotension resolved. Recent echo 11/12 showed EF 56-60%. Hyperglycemia improved with SSI and IV fluids. Hypokalemia gradually improved with continual repeated doses of replacement. Up to 3.3 today. Received additional 60 mEq today prior to discharge. No changes to home medications. Follow-up with PCP. Discussed to follow diabetic diet. Appearance: Pleasant, No Apparent Distress, Alert and Well-appearing HEENT: MMM, Supple and No JVD CVS: No Murmur, No Rubs and No Gallop Abdomen: Soft, Non-Tender and No Distention Respiratory: No Dyspnea Extremities: No Edema Vital Signs: Most Recent Vital Signs Temperature 98.1 F 07/23/24 05:22 Temperature Source Temporal Artery Scan 07/23/24 05:22 Temperature Source Temporal Artery Scan 07/21/24 15:05 Pulse Rate 107 H 07/23/24 09:26 Respiratory Rate 17 07/23/24 05:22 Blood Pressure 153/104 H 07/23/24 09:26 Blood Pressure Mean 115 07/23/24 05:22 Blood Pressure Left Arm 121/81 07/21/24 20:23 Blood Pressure Location Left Arm 07/23/24 09:26 Blood Pressure Position Standing 07/23/24 09:26 O2 Sat by Pulse Oximetry 96 07/23/24 05:22 Oxygen Delivery Method Room Air 07/23/24 09:00 Height 5 ft 7 in 07/21/24 20:23 Weight 159.7 kg 07/21/24 20:23 Telemetry Type Bedside Monitor 07/23/24 07:00 Telemetry Monitoring Continues 07/23/24 07:00 Irregular Telemetry Rate (Approximate) 80-90 BPM 07/23/24 01:00 Telemetry Heart Rate 81 07/23/24 07:00 Telemetry SPO2 97 07/23/24 07:00 EKG QRS Interval 0.03 L 07/23/24 07:00 Telemetry Strip Reading Afib 07/23/24 07:00 Imaging: EXAMINATION: HEAD CT WITHOUT CONTRAST FINDINGS: Topogram demonstrates no significant abnormality. Intraparenchymal hemorrhage: None. Parenchyma: Normal harvey-white differentiation. No mass effect or midline shift. Chronic: Mild decreased attenuation of the periventricular white matter consistent with microangiopathic ischemic change. Small old lacunar infarcts in the left basal ganglia. Vascular calcifications consistent with arthrosclerosis. Extra-axial spaces and basal cisterns: Normal. Ventricles: Mild enlargement of the ventricles and subarachnoid spaces consistent with atrophy. Paranasal sinuses and mastoid air cells: Visualized portions of paranasal sinuses are clear. Mastoid air cells are clear. Orbits: Normal visualized portions. Sella/Skull Base: Normal. Other: Scalp and visualized soft tissues are normal. Calvarium is normal. IMPRESSION: 1. Mild atrophy. 2. Mild microangiopathic ischemic change. 3. Atherosclerosis. 4. No intracranial hemorrhage. 5. Small old lacunar infarcts in the left basal ganglia. 6. Otherwise unremarkable noncontrast CT scan of the brain. EXAM: CHEST ONE VIEW, FRONTAL VIEW ONLY. FINDINGS: The heart size is enlarged. There is no pulmonary vascular congestion. Increased opacity in the left perihilar region is consistent with prominent mediastinal fat as demonstrated on the prior CT. The lungs are clear. No pleural effusion or pneumothorax is seen. No acute osseous abnormality is identified. Since the prior study, there has been no significant interval change. IMPRESSION: No acute cardiopulmonary process. Lab Results Last 24 Hours: 07/23/24 07/22/24 05:32 12:00 WBC 5.34 RBC 3.77 L Hgb 12.0 Hct 37.0 MCV 98.1 MCH 31.8 H MCHC 32.4 RDW Coeff of Andrei 13.9 Plt Count 184 Immature Gran % (Auto) 0.6 Neut % (Auto) 58.2 Lymph % (Auto) 28.8 [place] % (Auto) 9.6 Eos % (Auto) 2.2 Baso % (Auto) 0.6 Neut # (Auto) 3.1 Lymph # (Auto) 1.5 [place] # (Auto) 0.5 Eos # (Auto) 0.1 Baso # (Auto) 0.0 Immature Gran # (Auto) 0.0 Sodium 138.3 136.7 Potassium 3.31 L 3.07 L Chloride 101.1 97.6 L Carbon Dioxide 29.9 31.8 H Anion Gap 10.61 10.37 BUN 17.8 H 24.1 H Creatinine 1.19 1.53 H Estimated GFR (MDRD) 47.00 35.00 BUN/Creatinine Ratio 14.95 15.75 Glucose 219.0 H D 280.9 H Calcium 8.58 8.72 Total Bilirubin 1.61 H AST 105.3 H ALT 97.8 H Alkaline Phosphatase 93.6 Total Protein 7.22 Albumin 4.07 Globulin 3.15 Albumin/Globulin Ratio 1.29 Discharge Instructions Discharge Planning: Discharge Planning > 40 minutes If patient is discharged with left ventricular systolic dysfunction: NA Discharged with a beta jeremy? [] If no, why not? [] Discharged with an tyrone/arb? [] If no, why not? [] DIAGNOSIS: HYPOKALEMIA, ACUTE KIDNEY INJURY DIET: DIABETIC ACTIVITY: TOLERATED FOLLOW-UP WITH PCP THIS WEEK NO CHANGES TO HOME MEDICATIONS, RESUME YOU NORMALLY TAKE THEM Discharge Medications: Medications at Discharge (Home Meds & RX) apixaban 5 mg tablet (Eliquis) 5 mg PO BID 12/21/23 bumetanide 0.5 mg tablet 1 mg PO BID 12/21/23 doxazosin 2 mg tablet 2 mg PO QPM 12/21/23 losartan 25 mg tablet 25 mg PO BID 12/21/23 metformin 500 mg tablet 500 mg PO BID 12/21/23 pantoprazole 40 mg tablet,delayed release 40 mg PO DAILY 12/21/23 potassium chloride 20 mEq tablet,extended release(part/cryst) 20 meq PO BID 12/21/23 pregabalin 200 mg capsule 200 mg PO BID 12/21/23 tizanidine 4 mg tablet 4 mg PO BID PRN muscle spasticity 12/21/23 diltiazem HCl 240 mg capsule,24 hr,extended release 240 mg PO DAILY #30 caps 12/23/23 estradiol 1 mg tablet 1 mg PO DAILY 02/13/24 levocetirizine 5 mg tablet 5 mg PO DAILY 02/13/24 medroxyprogesterone 10 mg tablet 10 mg PO DAILY 02/13/24 metoprolol succinate 25 mg tablet,extended release 24 hr 25 mg PO DAILY 02/13/24 semaglutide 0.25 mg or 0.5 mg (2 mg/3 mL) subcutaneous pen injector (Ozempic) 0.5 mg subcut WEEKLY 02/13/24 Discharge Plan Discharge Discharge Orders: Discharge Patient (ONCE); Ordered 07/23/24 Ordered By: REN NASCIMENTO Activity Restrictions/Additional Instructions: DIAGNOSIS: HYPOKALEMIA, ACUTE KIDNEY INJURY DIET: DIABETIC ACTIVITY: TOLERATED FOLLOW-UP WITH PCP THIS WEEK NO CHANGES TO HOME MEDICATIONS, RESUME YOU NORMALLY TAKE THEM Instructions: Acute Kidney Injury (GEN), Potassium Content of Foods List (GEN), Hypokalemia (GEN) Patient Disposition: HOME SELF-CARE Prescriptions: Continued estradiol 1 mg tablet 1 mg PO DAILY medroxyprogesterone 10 mg tablet 10 mg PO DAILY metoprolol succinate 25 mg tablet extended release 24 hr 25 mg PO DAILY Ozempic 0.25 mg or 0.5 mg (2 mg/3 mL) pen injector 0.5 mg SUBCUT WEEKLY Patient Comments: INJECT 0.5MG UNDER THE SKIN ONCE WEEKLY levocetirizine 5 mg tablet 5 mg PO DAILY doxazosin 2 mg tablet 2 mg PO QPM Eliquis 5 mg tablet 5 mg PO BID Patient Comments: TAKE 1 TABLET BY MOUTH EVERY 12 HOURS pregabalin 200 mg capsule 200 mg PO BID potassium chloride 20 mEq tablet,ER particles/crystals 20 meq PO BID pantoprazole 40 mg tablet,delayed release (DR/EC) 40 mg PO DAILY tizanidine 4 mg tablet 4 mg PO BID PRN (Reason: muscle spasticity) losartan 25 mg tablet 25 mg PO BID bumetanide 0.5 mg tablet 1 mg PO BID metformin 500 mg tablet 500 mg PO BID diltiazem HCl 240 mg capsule,extended release 24 hr 240 mg PO DAILY Qty: 30 0RF Did you review [place] [employer] for ALL controlled substances?: No Discussed opioids are addictive and Narcan is available by prescription or from pharmacy.: No Condition: Stable Referrals: MEHNAZ WASHINGTON [Primary Care Provider] - 07/31/24 9:15 am
[2024-07-23] MEDS: K-DUR PO ONE ×2 (10:07)
[2024-07-23 10:34] VITALS: BP 140/87; PULSE 93; TEMP 97.8
== END 2024-07-23 11:40 | disposition home or self-care (01) ==
LOC: ED 14:51 → SCU 14:51
PROVIDERS: ADMIT Hospitalist; ATTEND Nurse Practitioner Family
DX: Z79.899 Other long term (current) drug therapy; E87.6 Hypokalemia; E86.0 Dehydration; E11.65 Type 2 diabetes mellitus with hyperglycemia; I48.91 Unspecified atrial fibrillation; K21.9 Gastro-esophageal reflux disease without esophagitis; Z51.81 Encounter for therapeutic drug level monitoring; G31.9 Degenerative disease of nervous system, unspecified; Z79.01 Long term (current) use of anticoagulants; N17.9 Acute kidney failure, unspecified; I50.30 Unspecified diastolic (congestive) heart failure; M25.512 Pain in left shoulder; Z86.73 Personal history of transient ischemic attack (TIA), and cerebral infarction without residual deficits; Z20.822 Contact with and (suspected) exposure to COVID-19; Z79.4 Long term (current) use of insulin; I70.90 Unspecified atherosclerosis; I95.1 Orthostatic hypotension; I67.82 Cerebral ischemia; Z79.84 Long term (current) use of oral hypoglycemic drugs